=== PATIENT | female | born 1955 | race Caucasian/White ===

== ENCOUNTER 2020-01-27 11:25 | Observation (INO) ==
--- NOTE | 2020-01-27 11:36 | DR.GENAD ---
HPI Time Seen Time Seen by Provider: 01/27/20 11:35 PCP Primary Care Physician: TERESA HPI Comment HPI Comment: PATIENT IS 64YR OLD FEMALE IN ER WITH 3 DAYS HISTORY SWELLING, REDNESS AND PSIN LLE. SHE IS DIABETIC AND REDNESS IS EXTENDING NOW IN THE MID THIGH AREA. NO FEVER. PAIN LLE IS THROBBING, 8/10 AND RADIATING TO THIGH. Complaint/Symptoms Chief Complaint Doctors Comments: SWELLING, REDNESS ANDPAIN LLE TIMES 3 DAYS. Chief Complaint:: PT. C/O CELLULITIS TO LEFT LEG X 3 DAYS. PT. HAS A HISTORY OF CELLULITIS TO LEFT LEG. CELLULITIS EXTENDS UP TO LEFT THIGH. COVID-19 Coronavirus risk:travel/contact w/high risk person: No Has patient experienced Coronavirus symptoms: No Nurses notes reviewed Nurses Notes Review: Yes Source History Provided: Patient Mode of Arrival Mode of Arrival: Wheelchair Timing Onset of Chief Complaint: 01/24/20 Came on: Suddenly Duration Duration: Constant Duration: Days Severity Severity: Moderate Modifying Factors Worsens:: WORSE WHEN WALKING. Improves:: PAIN IMPROVE WITH REST. PMH PMH Past Medical History: Yes Past Medical History: Coronary Artery Disease, Diabetes, Dyslipidemia, GERD and Hypertension Past Medical History Comment: CELLULITIS Past Surgical History: Yes Surgical History: Angioplasty/Stents and Hysterectomy Past Surgical History Comment: SKIN CANCER REMOVALS, HERNIA REPAIR Family History History of Family Medical Conditions: Yes Family Medical History: Diabetes Mellitus, Coronary Artery Disease and Hypertension Social History Does patient currently use any type of tobacco product: No Have you used tobacco products in the last 12 months: No Type of Tobacco Use: None Does any household member use tobacco: No Alcohol Use: None Do you use any recreational Drugs:: No Lives With: Family Lives Where: Home Travel Risk Coronavirus risk:travel/contact w/high risk person: No Has patient experienced Coronavirus symptoms: No Infectious screening In the last 2 months have you had wt loss of >10#?: NO Have you had fever, night sweats or hemotysis?: No Have you traveled outside the country in the last 6 months?: No Isolation: Standard ROS Review of Systems Constitutional: No Symptoms Reported and See HPI; negative Fever, Weakness and Fatigue Eyes: No Symptoms Reported and See HPI; negative Blurred Vision and Diplopia ENTM: No Symptoms Reported and See HPI; negative Ear Pain, Nose Discharge, Nose Congestion and Throat Pain Respiratoy: No Symptoms Reported and See HPI; negative Moist Cough, Short of Breath and Wheezing Cardiovascular: No Symptoms Reported, See HPI, Edema and Palpitations; negative Chest Pain Gastrointestinal/Abdominal: No Symptoms Reported, See HPI and Abdominal Pain; negative Diarrhea and Vomiting Genitourinary: No Symptoms Reported and See HPI; negative Dysuria, Frequency and Hematuria Neurological: No Symptoms Reported and See HPI; negative Headache, Weakness and Dizziness Musculoskeletal: See HPI, Leg (SWELLING AND REDNESS LEFT FOOT.) and Foot (LEFT BIFG TOE INFECTION AND PAIN.) Integumentary: No Symptoms Reported, See HPI, Change in Color (LEFT LEG REDNESS.) and Wound (LEFT BIG TOE WOUND AND REDNESS.) Hematologic/Lymphatic: No Symptoms Reported and See HPI; negative Easy Bruising and Swollen Glands Endocrine: No Symptoms Reported and See HPI; negative Increased Thirst and Increased Urine Psychiatric: No Symptoms Reported and See HPI All Other Systems: Reviewed and Negative PE Vital Signs Vitals: Temperature 97.2 F Pulse Rate 73 Respiratory Rate 17 Blood Pressure [Left Arm] 124/79 Blood Pressure 129/62 O2 Sat by Pulse Oximetry 94 General Limitations: No Limitations General Appearance: Alert and In No Apparent Distress Head Head Exam: Normal Inspection and Atraumatic Eyes Eye exam: Normal Appearance and PERRL; negative Scleral Icterus and Conjunctival Injection ENT ENT Exam: Normal Exam, Normal Oropharynx, Normal External Ear Exam and TM's Normal Bilaterally External Ear Exam: Normal External Inspection; negative Mastoid Tenderness TM/Canal Exam: Bilateral: Normal Nose Exam: Normal Nose Exam; negative Sinus Tenderness Mouth Exam: Normal Inspection; negative Lip Swelling and Tongue Swelling Throat Exam: Normal Inspection; negative Tonsillar Erythema, Tonsillomegaly and Tonsillar Exudate Neck Neck Exam: Normal Inspection and Trachea Midline; negative Tenderness and Lymphadenopathy Chest Chest Inspection: Normal Inspection and Symmetric Chest Wall Rise; negative Tenderness Respiratory Respiratory Exam: Normal Lung Sounds Bilat; negative Accessory Muscle Use, Chest Wall Tenderness and Respiratory Distress Respiratory Exam: Bilateral: Rhonchi and Lower: Rhonchi Cardiovascular Cardiovascular Exam: Regular Rate, Normal Rhythm and Normal Heart Sounds; negative Systolic Murmur and Diastolic Murmur Abdominal Exam Abdominal Exam: Normal Inspection, Normal Bowel Sounds and Soft; negative Tenderness Extremities Extremities Exam: Normal Inspection, Tenderness (TENDERNESS LEFT FOOT AND LEG.), Normal Capillary Refill and Edema Back Back Exam: Normal Inspection and Paraspinal Tenderness (LOWER BACK. CHRONIC.) Neurologic Neurological Exam: Alert and Oriented X3; negative Motor Sensory Deficit Psychiatric Psychiatric Exam: Normal Affect and Normal Mood Skin Skin Exam: Erythema (LEFT LEG AND FOOT.) MDM Additional Information Additional Information Obtained From: Old Records Differential Diagnosis Differential Diagnosis: CELLULITIS LEFT FOOT AND LEFT LEG, DM. COURSE Treatment Treatment: SEE ORDERS. Education/Counseling Education/Counseling: Patient Educated On: Diagnosis ROR Labs Reviewed Laboratory Results Reviewed?: Yes Result Diagrams: 01/29/20 05:35 01/29/20 13:00 Laboratory: 01/27/20 12:10 Blood Blood Culture - Preliminary 01/27/20 11:55 Blood Blood Culture - Preliminary WBC 9.8 X10^3/uL (3.6-10.0) 01/27/20 11:55 RBC 4.47 X10^6/uL (3.5-5.4) 01/27/20 11:55 Hgb 12.8 g/dL (12.0-16.0) 01/27/20 11:55 Hct 39.4 % (36.0-47.0) 01/27/20 11:55 MCV 88.0 fL (80.0-100.0) 01/27/20 11:55 MCH 28.7 pg (27.0-34.0) 01/27/20 11:55 MCHC 32.5 g/dL (33.0-35.0) L 01/27/20 11:55 RDW 16.1 % (11.6-16.5) 01/27/20 11:55 Plt Count 298 X10^3/uL (150.0-450.0) 01/27/20 11:55 MPV 7.7 fL (7.4-11.0) 01/27/20 11:55 Neut % (Auto) 72.9 % (42.0-75.0) 01/27/20 11:55 Lymph % (Auto) 15.8 % (21.0-51.0) L 01/27/20 11:55 [place] % (Auto) 8.5 % (0.0-13.0) 01/27/20 11:55 Eos % (Auto) 2.1 % (0.9-2.9) 01/27/20 11:55 Baso % (Auto) 0.7 % (0.2-1.0) 01/27/20 11:55 Neut # (Auto) 7.1 x10^3/uL (2.2-4.8) H 01/27/20 11:55 Lymph # (Auto) 1.6 X10^3/uL (1.3-2.9) 01/27/20 11:55 [place] # (Auto) 0.8 x10^3/uL (0.3-0.8) 01/27/20 11:55 Eos # (Auto) 0.2 x10^3/uL (0.0-0.2) 01/27/20 11:55 Baso # (Auto) 0.1 X10^3/uL (0.0-0.1) 01/27/20 11:55 Absolute Nucleated RBC 0.0 /100WBC 01/27/20 11:55 Sodium 134 mmol/L (136-145) L 01/27/20 11:55 Corrected Sodium 137 mmol/L (136-145) 01/27/20 11:55 Potassium 4.4 mmol/L (3.5-5.1) 01/27/20 11:55 Chloride 99 mmol/L (98-107) 01/27/20 11:55 Carbon Dioxide 26.6 mmol/L (21-32) 01/27/20 11:55 BUN 14 mg/dL (7-18) 01/27/20 11:55 Creatinine 1.04 mg/dL (0.55-1.02) H 01/27/20 11:55 Est GFR (MDRD) Af Amer > 60 (>60) 01/27/20 11:55 Est GFR (MDRD) Non-Af 57 (>60) L 01/27/20 11:55 Glucose 245 mg/dL (65-99) H 01/27/20 11:55 Calcium 9.4 mg/dL (8.5-10.1) 01/27/20 11:55 Corrected Calcium 10.4 mg/dL (8.5-10.1) H 01/27/20 11:55 Total Bilirubin 0.50 mg/dL (0.2-1.0) 01/27/20 11:55 AST 14 Units/L (15-37) L 01/27/20 11:55 ALT 20 Units/L (12-78) 01/27/20 11:55 Alkaline Phosphatase 71 Units/L (46-116) 01/27/20 11:55 Total Protein 7.9 g/dL (6.4-8.2) 01/27/20 11:55 Albumin 2.8 g/dL (3.4-5.0) L 01/27/20 11:55 Globulin 5.1 g/dL (2.5-4.5) H 01/27/20 11:55 Albumin/Globulin Ratio 0.5 Ratio (1.1-2.1) L 01/27/20 11:55 Other Results Comments: FINDINGS There is diffuse soft tissue swelling of the lower leg, ankle and foot. No fracture or focal bone destruction is seen. Chronic arthritic deformities are noted in the MTP joints and midfoot. Subchondral cystic lucencies are noted at the 1st MTP joint, probably degenerative, less likely of inflammatory origin. Plantar calcaneal enthesophyte is noted at the attachment of aponeurosis. IMPRESSION Osteoarthritis and soft tissue swelling. No localized osseous lesion demonstrated. XRAY XRAY Interpreted by: Radiologist (REPORT NOTED AND DISCUSSED WITH PATIENT.) and Self (ARTHRITIS.) Opioid Opioid Risk Tool Age (Jordon box if 16-45): No History of Preadolescent Sexual Abuse: No Total: 0 Total Score Risk Category: Low Risk Copyright: Grant LE predicting aberrant behaviors Diagnosis Discharge Problem: Cellulitis of left leg Blister of great toe, left, infected Qualifiers: Encounter type: initial encounter Qualified Code(s): S90.422A - Blister (nonthermal), left great toe, initial encounter Diabetes mellitus Qualifiers: Diabetes mellitus type: type 2 Diabetes mellitus superintendent container terminal insulin use: with superintendent container terminal use Diabetes mellitus complication status: with skin complications Diabetes mellitus complication detail: with foot ulcer Qualified Code(s): E11.621 - Type 2 diabetes mellitus with foot ulcer Instructions Forms: Excuse From Work Precautions for COVID19 Patient Portal Social Distancing
[2020-01-27 12:24] LABS: BASOPHILS # (AUTO) 0.1 X10^3/uL (0.0-0.1); BASOPHILS % (AUTO) 0.7 % (0.2-1.0); EOSINOPHILS # (AUTO) 0.2 x10^3/uL (0.0-0.2); EOSINOPHILS % (AUTO) 2.1 % (0.9-2.9); HEMATOCRIT 39.4 % (36.0-47.0); HEMOGLOBIN 12.8 g/dL (12.0-16.0); LYMPHOCYTES # (AUTO) 1.6 X10^3/uL (1.3-2.9); LYMPHOCYTES % (AUTO) 15.8 % (21.0-51.0); MEAN CORPUSCULAR HEMOGLOBIN 28.7 pg (27.0-34.0); MEAN CORPUSCULAR HGB CONC 32.5 g/dL (33.0-35.0); MEAN PLATELET VOLUME 7.7 fL (7.4-11.0); MONOCYTES # (AUTO) 0.8 x10^3/uL (0.3-0.8); MONOCYTES % (AUTO) 8.5 % (0.0-13.0); NEUTROPHILS # (AUTO) 7.1 x10^3/uL (2.2-4.8); NEUTROPHILS % (AUTO) 72.9 % (42.0-75.0); PLATELET COUNT 298 X10^3/uL (150.0-450.0); RED BLOOD COUNT 4.47 X10^6/uL (3.5-5.4); RED CELL DISTRIBUTION WIDTH 16.1 % (11.6-16.5); WHITE BLOOD COUNT 9.8 X10^3/uL (3.6-10.0)
[2020-01-27 12:34] LABS: ALANINE AMINOTRANSFERASE 20 Units/L (12-78); ALBUMIN 2.8 g/dL (3.4-5.0); ALKALINE PHOSPHATASE 71 Units/L (46-116); ASPARTATE AMINO TRANSFERASE 14 Units/L (15-37); BLOOD UREA NITROGEN 14 mg/dL (7-18); CALCIUM 9.4 mg/dL (8.5-10.1); CARBON DIOXIDE 26.6 mmol/L (21-32); CHLORIDE 99 mmol/L (98-107); COR CA(FOR HYPOALB) 10.4 mg/dL (8.5-10.1); COR NA(FOR HYPERGLY) 137 mmol/L (136-145); CREATININE 1.04 mg/dL (0.55-1.02); SODIUM 134 mmol/L (136-145); TOTAL PROTEIN 7.9 g/dL (6.4-8.2); eGFR NON BLACK RACES 57 (>60)
--- NOTE | 2020-01-27 13:47 | RAD ---
HISTORYCellulitisSTUDYLeft foot three viewsCOMPARISONCT left foot 01/21/2019 report onlyFINDINGSThere is diffuse soft tissue swelling of the lower leg, ankle and foot. No fracture or focal bone destruction is seen. Chronic arthritic deformities are noted in the MTP joints and midfoot. Subchondral cystic lucencies are noted at the 1st MTP joint, probably degenerative, less likely of inflammatory origin. Plantar calcaneal enthesophyte is noted at the attachment of aponeurosis.IMPRESSIONOsteoarthritis and soft tissue swelling. No localized osseous lesion demonstrated.Electronically signed by: KYLAH MOLINA (Jan 27, 2020 13:46:14)
[2020-01-27] MEDS ORDERED: PHARMACY CONSULT - VANCOMYCIN XX SCH (14:30)
[2020-01-27] MEDS ORDERED: MOTRIN TAB 600 MG PO PRN (14:30)
[2020-01-27] MEDS: HumuLIN R SC PRN (17:30)
[2020-01-27] MEDS ORDERED: PERCOCET TAB 5/325 MG PO PRN (18:06)
[2020-01-27] MEDS ORDERED: ROCEPHIN VIAL 500 MG IM ONE (18:07)
[2020-01-27] MEDS ORDERED: PERCOCET TAB 5/325 MG ONE (18:18)
[2020-01-27] MEDS ORDERED: XYLOCAINE 1 % (PLAIN) ONE (18:19)
[2020-01-27] MEDS ORDERED: ROCEPHIN VIAL 1 GRAM ONE (18:19)
[2020-01-27] MEDS: NS 1000 ML 1,000 ML IV SCH (18:56)
[2020-01-27] MEDS: LEVAQUIN PREMIX IV 750 MG 750 MG/150 ML BAG IV SCH (18:56)
[2020-01-27] MEDS ORDERED: VANCOMYCIN HCL 1 G in D5W 250 ML IV 250 ML IV SCH (21:00)
[2020-01-27] MEDS: VANCOMYCIN HCL 1 G in NS 250 ML IV 250 ML IV SCH (22:28)
[2020-01-28] MEDS: NS 1000 ML 1,000 ML IV SCH ×4 (03:33→15:15)
[2020-01-28] MEDS: VANCOMYCIN HCL 1 G in NS 250 ML IV 250 ML IV SCH ×3 (05:58→21:37)
[2020-01-28 06:36] LABS: BASOPHILS % (AUTO) 0.6 % (0.2-1.0); EOSINOPHILS # (AUTO) 0.4 x10^3/uL (0.0-0.2); EOSINOPHILS % (AUTO) 5.1 % (0.9-2.9); HEMATOCRIT 35.7 % (36.0-47.0); HEMOGLOBIN 11.6 g/dL (12.0-16.0); LYMPHOCYTES # (AUTO) 2.2 X10^3/uL (1.3-2.9); LYMPHOCYTES % (AUTO) 32.6 % (21.0-51.0); MEAN CORPUSCULAR HEMOGLOBIN 28.3 pg (27.0-34.0); MEAN CORPUSCULAR HGB CONC 32.4 g/dL (33.0-35.0); MEAN CORPUSCULAR VOLUME 87.5 fL (80.0-100.0); MEAN PLATELET VOLUME 7.3 fL (7.4-11.0); MONOCYTES # (AUTO) 0.9 x10^3/uL (0.3-0.8); MONOCYTES % (AUTO) 13.4 % (0.0-13.0); NEUTROPHILS # (AUTO) 3.3 x10^3/uL (2.2-4.8); NEUTROPHILS % (AUTO) 48.3 % (42.0-75.0); PLATELET COUNT 310 X10^3/uL (150.0-450.0); RED BLOOD COUNT 4.08 X10^6/uL (3.5-5.4); RED CELL DISTRIBUTION WIDTH 15.7 % (11.6-16.5); WHITE BLOOD COUNT 6.9 X10^3/uL (3.6-10.0)
[2020-01-28 06:54] LABS: ALANINE AMINOTRANSFERASE 17 Units/L (12-78); ALBUMIN 2.4 g/dL (3.4-5.0); ALKALINE PHOSPHATASE 57 Units/L (46-116); ASPARTATE AMINO TRANSFERASE 17 Units/L (15-37); BLOOD UREA NITROGEN 17 mg/dL (7-18); CARBON DIOXIDE 26.8 mmol/L (21-32); CHLORIDE 102 mmol/L (98-107); COR CA(FOR HYPOALB) 10.3 mg/dL (8.5-10.1); COR NA(FOR HYPERGLY) 139 mmol/L (136-145); CREATININE 1.07 mg/dL (0.55-1.02); SODIUM 137 mmol/L (136-145); TOTAL PROTEIN 6.8 g/dL (6.4-8.2); eGFR NON BLACK RACES 55 (>60)
--- NOTE | 2020-01-28 09:40 | RAD ---
HISTORYPRE OP PAC, CELLULITIS, POOR VENOUS ACCESSSTUDYCHEST, 1 VIEWCOMPARISONPortable chest January 22, 2019FINDINGSThe trachea is midline. The patient has had a lower C-spine anterior fusion. The cardiac silhouette is mildly enlarged. The lungs are clear without focal infiltrate or effusion. The bony thorax is unremarkable.IMPRESSIONNo acute cardiopulmonary disease and no change from the prior chest film January 22, 2019..Electronically signed by: CAROLYN THOMPSON (Jan 28, 2020 09:38:32)
[2020-01-28] MEDS ORDERED: XYLOCAINE 1 % (PLAIN) ONE (10:41)
--- NOTE | 2020-01-28 11:33 | DR.H&P ---
H&P - History & Physical for Day of: H&P Date: 01/27/20 - Chief Complaint Chief Complaint: LEFT LOWER LEG REDNESS AND SWELLING - History of Present Illness History of Present Illness: IS A 64 YEAR OLD PATIENT OF OURS. SHE PRESENTED TO THE ER WITH COMPLAINT OF REDNESS AND SWELLING TO THE LEFT LOWER LEG AND LEFT GREAT TOE FOR THE PAST THREE DAYS. SHE ALSO REPORT PAIN TO LOWER EXTREMITY. PAIN IS RATED 4/10. SHE REPORTS CELLULITIS IN THAT LEG IN THE PAST. OTHER PMH HISTORY INCLUDES CAD, DIABETES, DYSLIPIDEMIA, GERD, HTN, STENTS, HYSTERECTOMY, SKIN CANCER REMOVAL, AND HERNIA REPAIR. ON ARRIVAL TO THE ER, VITALS WERE 97.2-73-17-94%RA-129/62. LABS WERE OBTAINED. ABNORMAL LAB VALUES INCLUDE THE FOLLOWING: SODIUM 134, CREATININE 1.04, GLUCOSE 245, AST 14, ALBUMIN 2.8, GLOBULIN 5.1. BLOOD CULTURES WERE SET UP. A LEFT FOOT XRAY WAS OBTAINED AND REVEALED: There is diffuse soft tissue swelling of the lower leg, ankle and foot. No fracture or focal bone destruction is seen. Chronic arthritic deformities are noted in the MTP joints and midfoot. Subchondral cystic lucencies are noted at the 1st MTP joint, probably degenerative, less likely of inflammatory origin. Plantar calcaneal enthesophyte is noted at the attachment of aponeurosis. SHE WAS GIVEN ROCEPHIN 1.5G IV X 1 DOSE IN THE ER. WE ADMITTED PATIENT FOR FURTHER EVALUATION AND TREATMENT OF CELLULITIS OF THE LEFT LOWER EXTREMITY AND GREAT TOE. SHE WAS STARTED ON NORMAL SALINE AT 50 ML/HR, LEVAQUIN 750MG IV DAILY, VANCOMYCIN 1G IV Q8H, PERCOCET 5/325MG 1 TABLET PO Q4H PRN, LOVENOX 30MG SC BID, HUMULIN R SLIDING SCALE, AND MOTRIN 600MG PO TID PRN. TODAY, WE WILL OBTAIN A VENOUS DOPPLER OF THE LLE TO RULE OUT DVT. OTHERWISE, WE PLAN TO FOLLOW UP WITH AM LABS AND CONTINUE TO MONITOR. - Past Medical History Past Medical History: Coronary Artery Disease, Hypertension, Dyslipidemia, Diabetes, GERD - Past Surgical History Surgical History: Hysterectomy - Family History Family Medical History: Diabetes Mellitus, MS - Social History Does patient currently use any type of tobacco product: No Have you used tobacco products in the last 12 months: No Type of Tobacco Use: None Does any household member use tobacco: No Alcohol Use: None - Medications Home Medications: acyclovir Allergy (Verified 01/27/20 15:32) CONTINUE taking the following medications aspirin [Aspir-81] 80 mg PO DAILY 01/27/20 [History] cyanocobalamin (vitamin B-12) 500 mcg DAILY 01/27/20 [History] isosorbide dinitrate [Isordil] 2.5 mg PO BID 01/27/20 [History] lisinopril 10 mg PO HS 01/27/20 [History] loratadine 10 mg PO DAILY 01/27/20 [History] potassium chloride 10 meq PO DAILY 01/27/20 [History] - Review of Systems Constitutional: No Symptoms Reported Eyes: No Symptoms Reported ENT: No Symptoms Reported Respiratory: No Symptoms Reported Cardiovascular: Edema Gastrointestinal: No Symptoms Reported Genitourinary: No Symptoms Reported Musculoskeletal: Leg Pain (LEFT LEG ) Skin: See HPI (LEFT LEG REDNESS AND SWELLING ) Neurological: No Symptoms Reported - Physical Exam Vital Signs: Temperature 97.9 F Pulse Rate [Brachial] 76 Pulse Rate 73 Respiratory Rate 18 Blood Pressure [Left Arm] 103/50 Blood Pressure 129/62 O2 Sat by Pulse Oximetry 96 Oriented: Normal Eyes: Normal Ear: Normal Nose: Normal Throat: Normal Respiratory: Diminished Throughout Cardiovascular: Edema (LEFT LOWER EXTREMITY 2+ PITTING EDEMA ) : Normal Auscultation: Bowel Sounds: Normal Palpation: Normal Tenderness: Normal Skin: Red, Tender, Hot Musculoskeletal: Left, Leg, Swelling, Tender Psychiatric: Normal Mood Description: Calm Affect: Normal Speech Pattern: Clear - Assessment/Plan (1) Cellulitis of left leg Status: Acute Plan: ADMIT, NORMAL SALINE AT 50 ML/HR, LEVAQUIN 750MG IV DAILY, VANCOMYCIN 1G IV Q8H, PERCOCET 5/325MG 1 TABLET PO Q4H PRN, LOVENOX 30MG SC BID, HUMULIN R SLIDING SCALE, AND MOTRIN 600MG PO TID PRN. (2) CAD (coronary artery disease) Qualifiers: Coronary Disease-Associated Artery/Lesion type: wainwright artery [place] vs. transplanted heart: wainwright heart Associated angina: without angina Qualified Code(s): I25.10 - Atherosclerotic heart disease of wainwright coronary artery without angina pectoris Status: Acute (3) Dyslipidemia Status: Acute (4) GERD (gastroesophageal reflux disease) Qualifiers: Esophagitis presence: without esophagitis Qualified Code(s): K21.9 - Gastro-esophageal reflux disease without esophagitis Status: Acute (5) HTN (hypertension) Qualifiers: Hypertension type: essential hypertension Qualified Code(s): I10 - Essential (primary) hypertension Status: Acute (6) Diabetes mellitus Qualifiers: Diabetes mellitus type: type 2 Diabetes mellitus mcc insulin use: with mcc use Diabetes mellitus complication status: with skin complications Diabetes mellitus complication detail: with foot ulcer Qualified Code(s): E11.621 - Type 2 diabetes mellitus with foot ulcer; L97.509 - Non-pressure chronic ulcer of other part of unspecified foot with unspecified severity; Z79.4 - salvage determiner (current) use of insulin Status: Acute - Allergies Allergies/Adverse Reactions: Allergies Allergy/AdvReac Type Severity Reaction Status Date / Time acyclovir Allergy Verified 01/27/20 15:32
--- NOTE | 2020-01-28 11:34 | RAD ---
HISTORYPICCSTUDYAP [id number]/19/2020FINDINGSThere is a new left-sided PICC which extends to the SVC and terminates near the cavoatrial junction. There is no interval change in appearance of heart or lungs since recent prior.IMPRESSIONPICC position as noted.Electronically signed by: KYLAH MOLINA (Jan 28, 2020 11:32:54)
[2020-01-28 11:42] VITALS: BMI 39.3
--- NOTE | 2020-01-28 11:44 | DR.UPDATE ---
H&P Update History and Physical Update: History and Physical reviewed and patient examined. Changes noted: NO Yes with the following:agree with H&P. Will place PICC for care home abx therapy for cellulitis LLE H&P Reviewed: Yes Patient was examined?: Yes Procedures (ALL) - Central Line Placement PCM.CLCO: written consent Time out performed: Yes Patient placed pm monitor/pulse ox: Yes MD prep: mask, gown, gloves, other Centrial line prep: chlorhexidine scrub Local anesthsia used: lidocane 1% Ultrasound used for placement: Yes (left basilic vein id'd via u/s) Central line lumen ininserted: double (5Fr powerpicc. trimmed length 47cm. 2cm exposed.) Post procedure: good blood return, all ports aspirated, flushed,capped, sterile dressing applied Post procedure xray: tip oc catheter in good position, no pneumothorax seen Patient tolerated procedure: Yes Complications: none
[2020-01-28] MEDS: VSL#3 PO SCH (12:02)
[2020-01-28] MEDS: LEVAQUIN PREMIX IV 750 MG 750 MG/150 ML BAG IV SCH (12:02)
[2020-01-28] MEDS: LOVENOX INJ 30 MG SYR SC SCH ×2 (12:10→21:36)
[2020-01-28] MEDS: HumuLIN R SC PRN ×2 (12:40→17:19)
--- NOTE | 2020-01-28 12:58 | VAS ---
HISTORYLEFT LEG CELLULITIS. Evaluate for possible deep vein thrombosisSTUDYLOWER EXT VENOUS, UNILATERALCOMPARISONNoneFINDINGSUltrasound evaluation of the deep venous system of the left leg was p erformed from the level of the inguinal ligament down to the calf. The deep system is widely patent w ith good flow and compressibility seen along its course. No evidence of intraluminal thrombus is iden tified on the left.IMPRESSIONNo deep vein thrombosis is seen in the left lower extremityElectronicall y signed by: DANIELLE VIRGEN (Jan 28, 2020 12:57:35)
[2020-01-28] MEDS ORDERED: PHARMACY COMMENT IV NR (13:30)
[2020-01-29 06:19] LABS: BASOPHILS % (AUTO) 0.7 % (0.2-1.0); EOSINOPHILS # (AUTO) 0.2 x10^3/uL (0.0-0.2); EOSINOPHILS % (AUTO) 3.5 % (0.9-2.9); HEMATOCRIT 33.7 % (36.0-47.0); HEMOGLOBIN 11.2 g/dL (12.0-16.0); LYMPHOCYTES % (AUTO) 30.1 % (21.0-51.0); MEAN CORPUSCULAR HEMOGLOBIN 28.9 pg (27.0-34.0); MEAN CORPUSCULAR HGB CONC 33.1 g/dL (33.0-35.0); MEAN CORPUSCULAR VOLUME 87.3 fL (80.0-100.0); MEAN PLATELET VOLUME 7.3 fL (7.4-11.0); MONOCYTES # (AUTO) 0.9 x10^3/uL (0.3-0.8); MONOCYTES % (AUTO) 13.2 % (0.0-13.0); NEUTROPHILS # (AUTO) 3.5 x10^3/uL (2.2-4.8); NEUTROPHILS % (AUTO) 52.5 % (42.0-75.0); PLATELET COUNT 305 X10^3/uL (150.0-450.0); RED BLOOD COUNT 3.86 X10^6/uL (3.5-5.4); RED CELL DISTRIBUTION WIDTH 15.6 % (11.6-16.5); WHITE BLOOD COUNT 6.7 X10^3/uL (3.6-10.0)
[2020-01-29] MEDS: NS 1000 ML 1,000 ML IV SCH ×4 (06:22→21:05)
[2020-01-29] MEDS: VANCOMYCIN HCL 1 G in NS 250 ML IV 250 ML IV SCH ×3 (06:22→21:04)
[2020-01-29 06:30] LABS: ALANINE AMINOTRANSFERASE 18 Units/L (12-78); ALBUMIN 2.4 g/dL (3.4-5.0); ALKALINE PHOSPHATASE 62 Units/L (46-116); ASPARTATE AMINO TRANSFERASE 12 Units/L (15-37); BLOOD UREA NITROGEN 11 mg/dL (7-18); CALCIUM 8.6 mg/dL (8.5-10.1); CARBON DIOXIDE 26.7 mmol/L (21-32); CHLORIDE 102 mmol/L (98-107); COR CA(FOR HYPOALB) 9.9 mg/dL (8.5-10.1); COR NA(FOR HYPERGLY) 139 mmol/L (136-145); SODIUM 135 mmol/L (136-145); TOTAL PROTEIN 6.6 g/dL (6.4-8.2); eGFR NON BLACK RACES > 60 (>60)
[2020-01-29] MEDS: HumuLIN R SC PRN ×3 (07:12→21:05)
[2020-01-29] MEDS: LOVENOX INJ 30 MG SYR SC SCH ×2 (09:23→20:46)
[2020-01-29] MEDS: VSL#3 PO SCH (09:23)
[2020-01-29] MEDS: LEVAQUIN PREMIX IV 750 MG 750 MG/150 ML BAG IV SCH (09:23)
--- NOTE | 2020-01-29 11:58 | PCM.PROG ---
Progress Note - Progress Note for Day of Date of Exam: 01/29/20 - Subjective Subjective: IS BEING TREATED FOR LEFT LOWER EXTREMITY CELLULITIS. TODAY, SHE IS ALERT AND ORIENTED, LYING IN BED ON MORNING ROUNDS. SHE CONTINUES WITH REDNESS AND SWELLING TO THE LEFT LOWER EXTREMITY AND LEFT GREAT TOE. SHE ONLY REPORTS MILD PAIN THIS MORNING. ON EXAMINATION, HEART IS REGULAR IN RATE AND RHYTHM. BILATERAL LUNGS ARE NOTED WITH DIMINISHED LUNG SOUNDS THROUGHOUT. ABDOMEN IS ROUND, SOFT, AND NON-TENDER WITH NORMAL BOWEL SOUNDS NOTED IN ALL QUADRANTS. SHE CONTINUES WITH ERYTHEMA AND 1+ PITTING EDEMA TO THE LEFT LOWER EXTREMITY. HER VITALS THIS MORNING ARE: 97.6-70-20-95%-128/60. LABS WERE OBTAINED. ABNORMAL LAB VALUES INCLUDE THE FOLLOWING: HGB 11.2, HCT 33.7, SODIUM 134, GLUCOSE 266, AST 12, CRP 65.20, ALBUMIN 2.4. BLOOD CULTURES ARE PENDING. A VENOUS DOPPLER WAS OBTAINED YESTERDAY AND IS NEGATIVE FOR DVT. SHE IS CURRENTLY RECEIVING: NORMAL SALINE AT 50 ML/HR, LEVAQUIN 750MG IV DAILY, VANCOMYCIN 1G IV Q8H, PERCOCET 5/325MG 1 TABLET PO Q4H PRN, LOVENOX 30MG SC BID, HUMULIN R SLIDING SCALE, AND MOTRIN 600MG PO TID PRN. WE WILL CONTINUE WITH CURRENT PLAN OF CARE TODAY. OTHERWISE, WE PLAN TO FOLLOW UP WITH AM LABS AND CONTINUE TO MONITOR. - Past Medical Family Social History Past Med/Fam/Surg Hx: No changes since H&P Allergies: Allergies acyclovir Allergy (Verified 01/27/20 15:32) - Review of Systems ROS: No change since H&P - Vital Signs and I&O's Vital Signs: Temperature 97.6 F Pulse Rate [Brachial] 70 Pulse Rate 73 Respiratory Rate 20 Blood Pressure [Left Arm] 128/60 Blood Pressure 129/62 O2 Sat by Pulse Oximetry 95 Intake and Output: Intake & Output 01/26/20 01/27/20 01/28/20 01/29/20 11:59 11:59 11:59 11:59 Intake Total 1160 / 1160 2710 / 2710 Output Total 1675 / 1675 1400 / 1400 Balance -515 / -515 1310 / 1310 - Physical Exam Oriented: Normal Eyes: Normal Ear: Normal Nose: Normal Throat: Normal Respiratory: Generalized, Diminished Cardiovascular: Edema (LEFT LOWER EXTREMITY 1+ PITTING EDEMA ) : Normal Auscultation: Bowel Sounds: Normal Palpation: Normal Tenderness: Normal Skin: Red, Tender, Hot Musculoskeletal: Left, Leg, Swelling, Tender Psychiatric: Normal Mood Description: Calm Affect: Normal Speech Pattern: Clear, Appropriate - Laboratory and Diagnostics Result Diagrams: 01/29/20 05:35 01/29/20 05:35 Labs: 01/27/20 12:10 Blood Blood Culture - Preliminary 01/27/20 11:55 Blood Blood Culture - Preliminary Laboratory WBC 6.7 X10^3/uL (3.6-10.0) 01/29/20 05:35 RBC 3.86 X10^6/uL (3.5-5.4) 01/29/20 05:35 Hgb 11.2 g/dL (12.0-16.0) L 01/29/20 05:35 Hct 33.7 % (36.0-47.0) L 01/29/20 05:35 MCV 87.3 fL (80.0-100.0) 01/29/20 05:35 MCH 28.9 pg (27.0-34.0) 01/29/20 05:35 MCHC 33.1 g/dL (33.0-35.0) 01/29/20 05:35 RDW 15.6 % (11.6-16.5) 01/29/20 05:35 Plt Count 305 X10^3/uL (150.0-450.0) 01/29/20 05:35 MPV 7.3 fL (7.4-11.0) L 01/29/20 05:35 Neut % (Auto) 52.5 % (42.0-75.0) 01/29/20 05:35 Lymph % (Auto) 30.1 % (21.0-51.0) 01/29/20 05:35 [place] % (Auto) 13.2 % (0.0-13.0) H 01/29/20 05:35 Eos % (Auto) 3.5 % (0.9-2.9) H 01/29/20 05:35 Baso % (Auto) 0.7 % (0.2-1.0) 01/29/20 05:35 Neut # (Auto) 3.5 x10^3/uL (2.2-4.8) 01/29/20 05:35 Lymph # (Auto) 2.0 X10^3/uL (1.3-2.9) 01/29/20 05:35 [place] # (Auto) 0.9 x10^3/uL (0.3-0.8) H 01/29/20 05:35 Eos # (Auto) 0.2 x10^3/uL (0.0-0.2) 01/29/20 05:35 Baso # (Auto) 0.0 X10^3/uL (0.0-0.1) 01/29/20 05:35 Absolute Nucleated RBC 0.0 /100WBC 01/29/20 05:35 Sodium 135 mmol/L (136-145) L 01/29/20 05:35 Corrected Sodium 139 mmol/L (136-145) 01/29/20 05:35 Potassium 4.0 mmol/L (3.5-5.1) 01/29/20 05:35 Chloride 102 mmol/L (98-107) 01/29/20 05:35 Carbon Dioxide 26.7 mmol/L (21-32) 01/29/20 05:35 BUN 11 mg/dL (7-18) 01/29/20 05:35 Creatinine 0.90 mg/dL (0.55-1.02) 01/29/20 05:35 Est GFR (MDRD) Af Amer > 60 (>60) 01/29/20 05:35 Est GFR (MDRD) Non-Af > 60 (>60) 01/29/20 05:35 Glucose 266 mg/dL (65-99) H 01/29/20 05:35 POC Glucose (mg/dL) 243 mg/dL (65-99) H 01/29/20 11:39 Calcium 8.6 mg/dL (8.5-10.1) 01/29/20 05:35 Corrected Calcium 9.9 mg/dL (8.5-10.1) 01/29/20 05:35 Total Bilirubin 0.40 mg/dL (0.2-1.0) 01/29/20 05:35 AST 12 Units/L (15-37) L 01/29/20 05:35 ALT 18 Units/L (12-78) 01/29/20 05:35 Alkaline Phosphatase 62 Units/L (46-116) 01/29/20 05:35 C-Reactive Protein 65.20 mg/L (0-3.0) H 01/29/20 05:35 Total Protein 6.6 g/dL (6.4-8.2) 01/29/20 05:35 Albumin 2.4 g/dL (3.4-5.0) L 01/29/20 05:35 Globulin 4.2 g/dL (2.5-4.5) 01/29/20 05:35 Albumin/Globulin Ratio 0.6 Ratio (1.1-2.1) L 01/29/20 05:35 - Plan (1) Cellulitis of left leg Status: Acute Plan: NORMAL SALINE AT 50 ML/HR, LEVAQUIN 750MG IV DAILY, VANCOMYCIN 1G IV Q8H, PERCOCET 5/325MG 1 TABLET PO Q4H PRN, LOVENOX 30MG SC BID, HUMULIN R SLIDING SCALE, AND MOTRIN 600MG PO TID PRN. (2) CAD (coronary artery disease) Status: Acute Qualifiers: Coronary Disease-Associated Artery/Lesion type: wainwright artery [place] vs. transplanted heart: wainwright heart Associated angina: without angina Qualified Code(s): I25.10 - Atherosclerotic heart disease of [place] coronary artery without angina pectoris (3) Dyslipidemia Status: Acute (4) GERD (gastroesophageal reflux disease) Status: Acute Qualifiers: Esophagitis presence: without esophagitis Qualified Code(s): K21.9 - Gastro-esophageal reflux disease without esophagitis (5) HTN (hypertension) Status: Acute Qualifiers: Hypertension type: essential hypertension Qualified Code(s): I10 - Essential (primary) hypertension (6) Diabetes mellitus Status: Acute Qualifiers: Diabetes mellitus type: type 2 Diabetes mellitus senior living insulin use: wi th buttermaker helper use Diabetes mellitus complication status: with skin complic ations Diabetes mellitus complication detail: with foot ulcer Qualified Code(s): E11.621 - Type 2 diabetes mellitus with foot ulcer; L97.509 - Non- pressure chronic ulcer of other part of unspecified foot with unspecified severity; Z79.4 - snf (current) use of insulin
[2020-01-29] MEDS ORDERED: MILK OF MAGNESIA PO SCH (12:00)
[2020-01-29 13:21] LABS: CREATININE 0.93 mg/dL (0.55-1.02); VANCOMYCIN,TROUGH 14.9 ug/mL (15-20)
[2020-01-29] MEDS: COLACE CAP 100 MG PO SCH (20:45)
[2020-01-29] MEDS: RESTORIL CAP 15 MG PO PRN (21:04)
[2020-01-30] MEDS: NS 1000 ML 1,000 ML IV SCH ×4 (00:20→22:53)
[2020-01-30 06:15] LABS: BASOPHILS # (AUTO) 0.1 X10^3/uL (0.0-0.1); BASOPHILS % (AUTO) 0.7 % (0.2-1.0); EOSINOPHILS # (AUTO) 0.3 x10^3/uL (0.0-0.2); EOSINOPHILS % (AUTO) 4.3 % (0.9-2.9); HEMATOCRIT 33.7 % (36.0-47.0); HEMOGLOBIN 10.9 g/dL (12.0-16.0); LYMPHOCYTES # (AUTO) 2.5 X10^3/uL (1.3-2.9); LYMPHOCYTES % (AUTO) 35.9 % (21.0-51.0); MEAN CORPUSCULAR HEMOGLOBIN 28.5 pg (27.0-34.0); MEAN CORPUSCULAR HGB CONC 32.5 g/dL (33.0-35.0); MEAN CORPUSCULAR VOLUME 87.7 fL (80.0-100.0); MEAN PLATELET VOLUME 7.1 fL (7.4-11.0); MONOCYTES % (AUTO) 13.9 % (0.0-13.0); NEUTROPHILS # (AUTO) 3.1 x10^3/uL (2.2-4.8); NEUTROPHILS % (AUTO) 45.2 % (42.0-75.0); PLATELET COUNT 315 X10^3/uL (150.0-450.0); RED BLOOD COUNT 3.84 X10^6/uL (3.5-5.4)
[2020-01-30] MEDS: HumuLIN R SC PRN ×4 (06:34→21:23)
[2020-01-30] MEDS: VANCOMYCIN HCL 1 G in NS 250 ML IV 250 ML IV SCH ×3 (06:34→21:53)
[2020-01-30 06:35] LABS: ALANINE AMINOTRANSFERASE 18 Units/L (12-78); ALBUMIN 2.4 g/dL (3.4-5.0); ALKALINE PHOSPHATASE 66 Units/L (46-116); ASPARTATE AMINO TRANSFERASE 14 Units/L (15-37); BLOOD UREA NITROGEN 10 mg/dL (7-18); CALCIUM 8.5 mg/dL (8.5-10.1); CARBON DIOXIDE 27.2 mmol/L (21-32); CHLORIDE 102 mmol/L (98-107); COR CA(FOR HYPOALB) 9.8 mg/dL (8.5-10.1); COR NA(FOR HYPERGLY) 139 mmol/L (136-145); CREATININE 0.78 mg/dL (0.55-1.02); SODIUM 135 mmol/L (136-145); TOTAL PROTEIN 6.6 g/dL (6.4-8.2); eGFR NON BLACK RACES > 60 (>60)
[2020-01-30 06:42] LABS: BAND NEUTROPHILS % 1 % (0-10)
[2020-01-30 06:43] LABS: PLATELET MORPHOLOGY COMMENT NORMAL (NORMAL)
[2020-01-30] MEDS: LOVENOX INJ 30 MG SYR SC SCH ×2 (08:14→21:21)
[2020-01-30] MEDS: LEVAQUIN PREMIX IV 750 MG 750 MG/150 ML BAG IV SCH (08:15)
[2020-01-30] MEDS: VSL#3 PO SCH (08:15)
[2020-01-30] MEDS: NYSTATIN CREAM TOP SCH ×2 (12:56→21:21)
[2020-01-30] MEDS: AMARYL TAB 4 MG PO SCH ×2 (12:56→21:20)
[2020-01-30] MEDS: CLARITIN PO SCH (12:56)
[2020-01-30] MEDS: NORVASC TAB 5 MG PO SCH (12:56)
[2020-01-30] MEDS: LOPRESSOR TAB 25 MG PO SCH ×2 (12:57→21:21)
[2020-01-30] MEDS: GLUCOPHAGE XR 24-HR PO SCH ×2 (12:57→21:20)
[2020-01-30] MEDS: DIOVAN TAB 160 MG PO SCH (12:57)
[2020-01-30] MEDS: MICRO K EXTEN CAP 10 MEQ PO SCH (12:57)
[2020-01-30] MEDS: ASPIRIN EC 81 MG PO SCH (12:57)
[2020-01-30] MEDS: ISOSORBIDE DINITRATE PO SCH ×2 (13:00→21:20)
[2020-01-30] MEDS ORDERED: SNACK - Diabetic Appropriate PO SCH (20:00)
[2020-01-30] MEDS ORDERED: ZESTRIL TAB 10 MG PO SCH (21:00)
[2020-01-30] MEDS ORDERED: LIPITOR TAB 40 MG PO SCH (21:00)
[2020-01-30] MEDS: COLACE CAP 100 MG PO SCH (21:20)
[2020-01-30 21:22] LABS: CREATININE 1.03 mg/dL (0.55-1.02); VANCOMYCIN,TROUGH 15.5 ug/mL (15-20)
[2020-01-30] MEDS: PEPCID TAB 20 MG PO SCH (21:22)
[2020-01-30] MEDS: RESTORIL CAP 15 MG PO PRN (21:23)
[2020-01-30] MEDS: PHARMACY COMMENT IV NR (21:24)
--- NOTE | 2020-01-30 23:21 | PCM.PROG ---
Progress Note - Progress Note for Day of Date of Exam: 01/30/20 - Subjective Subjective: IS BEING TREATED FOR LEFT LOWER EXTREMITY CELLULITIS. TODAY, SHE IS ALERT AND ORIENTED, LYING IN BED ON MORNING ROUNDS. SHE CONTINUES WITH REDNESS AND SWELLING TO THE LEFT LOWER EXTREMITY AND LEFT GREAT TOE. SHE ONLY REPORTS MILD PAIN THIS MORNING. ON EXAMINATION, HEART IS REGULAR IN RATE AND RHYTHM. BILATERAL LUNGS ARE NOTED WITH DIMINISHED LUNG SOUNDS THROUGHOUT. ABDOMEN IS ROUND, SOFT, AND NON-TENDER WITH NORMAL BOWEL SOUNDS NOTED IN ALL QUADRANTS. SHE CONTINUES WITH ERYTHEMA AND 1+ PITTING EDEMA TO THE LEFT LOWER EXTREMITY. HER VITALS THIS MORNING ARE: 98.2-76-20-93%NC-115/56. LABS WERE OBTAINED. ABNORMAL LAB VALUES INCLUDE THE FOLLOWING: HGB 10.9, HCT 33.7, SODIUM 135, GLUCOSE 272, AST 14, CRP 29.30, ALBUMIN 2.4. BLOOD CULTURES ARE PENDING. SHE IS CURRENTLY RECEIVING: NORMAL SALINE AT 50 ML/HR, LEVAQUIN 750MG IV DAILY, VANCOMYCIN 1G IV Q8H, PERCOCET 5/325MG 1 TABLET PO Q4H PRN, LOVENOX 30MG SC BID, HUMULIN R SLIDING SCALE, AND MOTRIN 600MG PO TID PRN. WE WILL CONTINUE WITH CURRENT PLAN OF CARE TODAY. OTHERWISE, WE PLAN TO FOLLOW UP WITH AM LABS AND CONTINUE TO MONITOR. - Past Medical Family Social History Past Med/Fam/Surg Hx: No changes since H&P Allergies: Allergies acyclovir Allergy (Verified 01/27/20 15:32) - Review of Systems ROS: No change since H&P - Vital Signs and I&O's Vital Signs: Temperature 97.8 F Pulse Rate [Brachial] 76 Pulse Rate 73 Respiratory Rate 20 Blood Pressure [Right Arm] 115/56 Blood Pressure [Left Arm] 128/60 Blood Pressure 129/62 O2 Sat by Pulse Oximetry 93 Intake and Output: Intake & Output 01/28/20 01/29/20 01/30/20 01/31/20 11:59 11:59 11:59 11:59 Intake Total 1160 / 1160 2710 / 2710 2250 / 2250 1900 / 1900 Output Total 1675 / 1675 1400 / 1400 Balance -515 / -515 1310 / 1310 2250 / 2250 1900 / 1900 - Physical Exam Oriented: Normal Eyes: Normal Ear: Normal Nose: Normal Throat: Normal Respiratory: Generalized, Diminished Cardiovascular: Edema (LEFT LOWER EXTREMITY 1+ PITTING EDEMA ) : Normal Auscultation: Bowel Sounds: Normal Palpation: Normal Tenderness: Normal Skin: Red, Tender, Hot Musculoskeletal: Left, Leg, Swelling, Tender Psychiatric: Normal Mood Description: Calm Affect: Normal Speech Pattern: Clear, Appropriate - Laboratory and Diagnostics Result Diagrams: 01/30/20 05:16 01/30/20 20:29 Labs: 01/27/20 12:10 Blood Blood Culture - Preliminary 01/27/20 11:55 Blood Blood Culture - Preliminary Laboratory WBC 7.0 X10^3/uL (3.6-10.0) 01/30/20 05:16 RBC 3.84 X10^6/uL (3.5-5.4) 01/30/20 05:16 Hgb 10.9 g/dL (12.0-16.0) L 01/30/20 05:16 Hct 33.7 % (36.0-47.0) L 01/30/20 05:16 MCV 87.7 fL (80.0-100.0) 01/30/20 05:16 MCH 28.5 pg (27.0-34.0) 01/30/20 05:16 MCHC 32.5 g/dL (33.0-35.0) L 01/30/20 05:16 RDW 16.0 % (11.6-16.5) 01/30/20 05:16 Plt Count 315 X10^3/uL (150.0-450.0) 01/30/20 05:16 Plt Count Comment Adequate (ADEQUATE) 01/30/20 05:16 MPV 7.1 fL (7.4-11.0) L 01/30/20 05:16 Neut % (Auto) 45.2 % (42.0-75.0) 01/30/20 05:16 Lymph % (Auto) 35.9 % (21.0-51.0) 01/30/20 05:16 [place] % (Auto) 13.9 % (0.0-13.0) H 01/30/20 05:16 Eos % (Auto) 4.3 % (0.9-2.9) H 01/30/20 05:16 Baso % (Auto) 0.7 % (0.2-1.0) 01/30/20 05:16 Neut # (Auto) 3.1 x10^3/uL (2.2-4.8) 01/30/20 05:16 Lymph # (Auto) 2.5 X10^3/uL (1.3-2.9) 01/30/20 05:16 [place] # (Auto) 1.0 x10^3/uL (0.3-0.8) H 01/30/20 05:16 Eos # (Auto) 0.3 x10^3/uL (0.0-0.2) H 01/30/20 05:16 Baso # (Auto) 0.1 X10^3/uL (0.0-0.1) 01/30/20 05:16 Absolute Nucleated RBC 0.0 /100WBC 01/30/20 05:16 Total Counted 100 01/30/20 05:16 Neutrophils % (Manual) 48 % (39-76) 01/30/20 05:16 Band Neutrophils % 1 % (0-10) 01/30/20 05:16 Lymphocytes % (Manual) 42 % (13-43) 01/30/20 05:16 Monocytes % (Manual) 6 % (4-9) 01/30/20 05:16 Eosinophils % (Manual) 3 % (0-6) 01/30/20 05:16 Plt Morphology Comment Normal (NORMAL) 01/30/20 05:16 RBC Morphology Normal (NORMAL) 01/30/20 05:16 Sodium 135 mmol/L (136-145) L 01/30/20 05:16 Corrected Sodium 139 mmol/L (136-145) 01/30/20 05:16 Potassium 4.4 mmol/L (3.5-5.1) 01/30/20 05:16 Chloride 102 mmol/L (98-107) 01/30/20 05:16 Carbon Dioxide 27.2 mmol/L (21-32) 01/30/20 05:16 BUN 10 mg/dL (7-18) 01/30/20 05:16 Creatinine 1.03 mg/dL (0.55-1.02) H 01/30/20 20:29 Est GFR (MDRD) Af Amer > 60 (>60) 01/30/20 05:16 Est GFR (MDRD) Non-Af > 60 (>60) 01/30/20 05:16 Glucose 272 mg/dL (65-99) H 01/30/20 05:16 POC Glucose (mg/dL) 312 mg/dL (65-99) H 01/30/20 20:11 Calcium 8.5 mg/dL (8.5-10.1) 01/30/20 05:16 Corrected Calcium 9.8 mg/dL (8.5-10.1) 01/30/20 05:16 Total Bilirubin 0.20 mg/dL (0.2-1.0) 01/30/20 05:16 AST 14 Units/L (15-37) L 01/30/20 05:16 ALT 18 Units/L (12-78) 01/30/20 05:16 Alkaline Phosphatase 66 Units/L (46-116) 01/30/20 05:16 C-Reactive Protein 29.30 mg/L (0-3.0) H 01/30/20 05:16 Total Protein 6.6 g/dL (6.4-8.2) 01/30/20 05:16 Albumin 2.4 g/dL (3.4-5.0) L 01/30/20 05:16 Globulin 4.2 g/dL (2.5-4.5) 01/30/20 05:16 Albumin/Globulin Ratio 0.6 Ratio (1.1-2.1) L 01/30/20 05:16 Vancomycin Trough 15.5 ug/mL (15-20) 01/30/20 20:29 - Plan (1) Cellulitis of left leg Status: Acute Plan: NORMAL SALINE AT 50 ML/HR, LEVAQUIN 750MG IV DAILY, VANCOMYCIN 1G IV Q8H, PERCOCET 5/325MG 1 TABLET PO Q4H PRN, LOVENOX 30MG SC BID, HUMULIN R SLIDING SCALE, AND MOTRIN 600MG PO TID PRN. (2) CAD (coronary artery disease) Status: Acute Qualifiers: Coronary Disease-Associated Artery/Lesion type: [place] artery [place] vs. transplanted heart: [place] heart Associated angina: without angina Qualified Code(s): I25.10 - Atherosclerotic heart disease of [place] coronary artery without angina pectoris (3) Dyslipidemia Status: Acute (4) GERD (gastroesophageal reflux disease) Status: Acute Qualifiers: Esophagitis presence: without esophagitis Qualified Code(s): K21.9 - Gastro-esophageal reflux disease without esophagitis (5) HTN (hypertension) Status: Acute Qualifiers: Hypertension type: essential hypertension Qualified Code(s): I10 - Essential (primary) hypertension (6) Diabetes mellitus Status: Acute Qualifiers: Diabetes mellitus type: type 2 Diabetes mellitus custodial insulin use: with custodial use Diabetes mellitus complication status: with skin complications Diabetes mellitus complication detail: with foot ulcer Qualified Code(s): E11.621 - Type 2 diabetes mellitus with foot ulcer; L97.509 - Non-pressure chronic ulcer of other part of unspecified foot with unspecified severity; 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
[2020-01-31 06:03] LABS: BASOPHILS # (AUTO) 0.1 X10^3/uL (0.0-0.1); EOSINOPHILS # (AUTO) 0.4 x10^3/uL (0.0-0.2); EOSINOPHILS % (AUTO) 5.3 % (0.9-2.9); HEMATOCRIT 31.9 % (36.0-47.0); HEMOGLOBIN 10.3 g/dL (12.0-16.0); LYMPHOCYTES # (AUTO) 2.8 X10^3/uL (1.3-2.9); MEAN CORPUSCULAR HEMOGLOBIN 28.6 pg (27.0-34.0); MEAN CORPUSCULAR HGB CONC 32.4 g/dL (33.0-35.0); MEAN CORPUSCULAR VOLUME 88.3 fL (80.0-100.0); MEAN PLATELET VOLUME 7.3 fL (7.4-11.0); MONOCYTES # (AUTO) 0.8 x10^3/uL (0.3-0.8); MONOCYTES % (AUTO) 10.9 % (0.0-13.0); NEUTROPHILS # (AUTO) 3.5 x10^3/uL (2.2-4.8); NEUTROPHILS % (AUTO) 45.8 % (42.0-75.0); PLATELET COUNT 323 X10^3/uL (150.0-450.0); RED BLOOD COUNT 3.62 X10^6/uL (3.5-5.4); RED CELL DISTRIBUTION WIDTH 16.1 % (11.6-16.5); WHITE BLOOD COUNT 7.7 X10^3/uL (3.6-10.0)
[2020-01-31] MEDS: NS 1000 ML 1,000 ML IV SCH (06:05)
[2020-01-31] MEDS: VANCOMYCIN HCL 1 G in NS 250 ML IV 250 ML IV SCH (06:05)
[2020-01-31] MEDS: HumuLIN R SC PRN ×2 (06:06→12:15)
[2020-01-31 06:21] LABS: ALANINE AMINOTRANSFERASE 19 Units/L (12-78); ALBUMIN 2.3 g/dL (3.4-5.0); ALKALINE PHOSPHATASE 48 Units/L (46-116); ASPARTATE AMINO TRANSFERASE 16 Units/L (15-37); BLOOD UREA NITROGEN 8 mg/dL (7-18); CALCIUM 8.5 mg/dL (8.5-10.1); CARBON DIOXIDE 28.2 mmol/L (21-32); CHLORIDE 102 mmol/L (98-107); COR CA(FOR HYPOALB) 9.9 mg/dL (8.5-10.1); COR NA(FOR HYPERGLY) 139 mmol/L (136-145); CREATININE 0.74 mg/dL (0.55-1.02); SODIUM 135 mmol/L (136-145); TOTAL PROTEIN 6.3 g/dL (6.4-8.2); eGFR NON BLACK RACES > 60 (>60)
[2020-01-31 07:21] LABS: PLATELET MORPHOLOGY COMMENT NORMAL (NORMAL)
[2020-01-31] MEDS: LEVAQUIN PREMIX IV 750 MG 750 MG/150 ML BAG IV SCH (10:28)
[2020-01-31] MEDS: ISOSORBIDE DINITRATE PO SCH (10:29)
[2020-01-31] MEDS: PEPCID TAB 20 MG PO SCH (10:29)
[2020-01-31] MEDS: DIOVAN TAB 160 MG PO SCH (10:30)
[2020-01-31] MEDS: AMARYL TAB 4 MG PO SCH (10:30)
[2020-01-31] MEDS: GLUCOPHAGE XR 24-HR PO SCH (10:30)
[2020-01-31] MEDS: CLARITIN PO SCH (10:31)
[2020-01-31] MEDS: NORVASC TAB 5 MG PO SCH (10:31)
[2020-01-31] MEDS: LOVENOX INJ 30 MG SYR SC SCH (10:31)
[2020-01-31] MEDS: NYSTATIN CREAM TOP SCH (10:31)
[2020-01-31] MEDS: LOPRESSOR TAB 25 MG PO SCH (10:31)
[2020-01-31] MEDS: VSL#3 PO SCH (10:32)
[2020-01-31] MEDS: ASPIRIN EC 81 MG PO SCH (10:32)
[2020-01-31] MEDS: MICRO K EXTEN CAP 10 MEQ PO SCH (10:32)
[2020-01-31 12:36] VITALS: BP 145/64
== END 2020-01-31 12:40 | disposition home or self-care (01) ==
LOC: ER 11:28 → OBS 11:28 → MED/SURG 01-28 16:37
PROVIDERS: ADMIT Internal Medicine; ATTEND Internal Medicine
DX: I87.2 Venous insufficiency (chronic) (peripheral); E11.621 Type 2 diabetes mellitus with foot ulcer; Z79.4 Long term (current) use of insulin; E11.65 Type 2 diabetes mellitus with hyperglycemia; R60.0 Localized edema; R94.31 Abnormal electrocardiogram [ECG] [EKG]; I25.10 Atherosclerotic heart disease of native coronary artery without angina pectoris; K21.9 Gastro-esophageal reflux disease without esophagitis; L97.529 Non-pressure chronic ulcer of other part of left foot with unspecified severity; I10 Essential (primary) hypertension; M19.072 Primary osteoarthritis, left ankle and foot; R79.82 Elevated C-reactive protein (CRP); L03.116 Cellulitis of left lower limb; R26.89 Other abnormalities of gait and mobility; E78.2 Mixed hyperlipidemia
CPT/HCPCS: 36415; 71010; 71045; 73630; 80053; 80202; 82565; 85025; 86140; 87040; 93005; 93971; 96360; 96361; 96372; 97162; 99284; A4222; G0378; J0696; J1650; J1815; J1956; J3370; J7030; J7050

== ENCOUNTER 2021-03-09 05:59 | Inpatient (IN) ==
[2021-03-09 06:08] VITALS: BMI 42.6
[2021-03-09] MEDS ORDERED: ZOFRAN INJ 4 MG VIAL IVP ONE (06:28)
[2021-03-09] MEDS ORDERED: TORADOL 30 MG VIAL IVP ONE (06:28)
[2021-03-09] MEDS ORDERED: DILAUDID INJ IVP ONE ×2 (06:28→07:47)
[2021-03-09] MEDS ORDERED: NS 1000 ML 1,000 ML IV ONE ×2 (06:28→07:47)
--- NOTE | 2021-03-09 06:28 | DR.URINEF ---
HPI <Renato Szymanski - Last Filed: 03/13/21 08:14> Time Seen Time Seen by Provider: 03/09/21 06:24 PCP Primary Care Physician: TERESA Complaint Chief Complaint Doctors Comments: 65 y/o female presents with kidney stone. Was seen here early am yesterday. Dx'd with a 5 mm stone of the left ureter. Pt was doing well when she left here. Pain awoke her at 0200. + sharp, severe, constant. Located of left flank. Does not radiate. Associated with nausea, but no vomiting. No fever or chills. Nothning makes the pain better, nothing makes it worse. Chief Complaint:: PT IN ED VIA WHEELCHAIR WITH C/O KIDNEY STONE. PT STATES SHE WAS HERE IN ER YESTERDAY AND WAS DOING FINE TILL NOW. STATES MEDICATION DON'T H ELP. COVID-19 Coronavirus risk:travel/contact w/high risk person: No Has patient experienced Coronavirus symptoms: No Reviewed Nurses Notes Reviewed: Yes Source History Provided: Patient Mode of Arrival Mode of Arrival: Wheelchair Timing Onset of Chief Complaint: 03/08/21 Context Onset: Spontaneous History of: Kidney Stone PMH <Renato Szymanski - Last Filed: 03/13/21 08:14> PMH Past Medical History: Yes Past Medical History: Coronary Artery Disease, Diabetes, Dyslipidemia, GERD and Hypertension Past Surgical History: Yes Surgical History: Hysterectomy Family History History of Family Medical Conditions: Yes Family Medical History: Diabetes Mellitus and [place] Social History Does patient currently use any type of tobacco product: No Have you used tobacco products in the last 12 months: No Type of Tobacco Use: None Does any household member use tobacco: No Alcohol Use: None Do you use any recreational Drugs:: No Lives With: Family Lives Where: Home Travel Risk Coronavirus risk:travel/contact w/high risk person: No Has patient experienced Coronavirus symptoms: No Infectious screening In the last 2 months have you had wt loss of >10#?: NO Have you had fever, night sweats or hemotysis?: No Have you traveled outside the country in the last 6 months?: No Isolation: Standard ROS <Renato Szymanski - Last Filed: 03/13/21 08:14> Review of Systems Constitutional: No Symptoms Reported; negative Chills and Fever Eyes: No Symptoms Reported ENTM: No Symptoms Reported Respiratoy: No Symptoms Reported Cardiovascular: No Symptoms Reported Gastrointestinal/Abdominal: Nausea Genitourinary: No Symptoms Reported; negative Dysuria, Frequency and Hematuria Neurological: No Symptoms Reported Musculoskeletal: Back Pain Integumentary: No Symptoms Reported Hematologic/Lymphatic: No Symptoms Reported Endocrine: No Symptoms Reported Psychiatric: No Symptoms Reported All Other Systems: Reviewed and Negative PE <Renato Grotz - Last Filed: 03/13/21 08:14> Vital Signs Vitals: Temperature 98.0 F Pulse Rate [Left] 99 Pulse Rate 91 Respiratory Rate 16 Blood Pressure [Right Arm] 130/66 Blood Pressure 179/74 O2 Sat by Pulse Oximetry 96 General Limitations: No Limitations General Appearance: Alert and In Distress Eyes Eye exam: Normal Appearance Neck Neck Exam: Normal Inspection and Full ROM Chest Chest Inspection: Normal Inspection Respiratory Respiratory Exam: Normal Lung Sounds Bilat; negative Accessory Muscle Use and Respiratory Distress Respiratory Exam: Bilateral: Clear to Auscultation Cardiovascular Cardiovascular Exam: Regular Rate, Normal Rhythm and Normal Heart Sounds Abdominal Exam Abdominal Exam: Normal Inspection, Normal Bowel Sounds and Soft; negative Tenderness Extremities Extremities Exam: Normal Inspection and Full ROM; negative Edema Back Back Exam: Normal Inspection Neurologic Neurological Exam: Alert, Oriented X3 and CN II-XII Intact; negative Motor Sensory Deficit Psychiatric Psychiatric Exam: Normal Affect Skin Skin Exam: Warm and Dry <Joana Sevilla - Last Filed: 03/09/21 09:21> Vital Signs Vitals: Temperature 98.0 F Pulse Rate [Left] 99 Pulse Rate 91 Respiratory Rate 16 Blood Pressure [Right Arm] 130/66 Blood Pressure 179/74 O2 Sat by Pulse Oximetry 96 [facility] <Renato Grotz - Last Filed: 03/13/21 08:14> Differential Diagnosis Differential Diagnosis: Pyelonephritis, Urolithiasis and UTI COURSE <Renato Grotz - Last Filed: 03/13/21 08:14> Treatment Treatment: Pt seen and diagnosed with left ureteral stone yesterday. Was doing better, until 4 hours ago. Now with severe left flank pain. Given IV fluids, IV analgesia. 0745 - pain down to a 5/10. Will give additional fluids, additional dilaudid. Will repeat the CT to see if the stone is moving. <Joana Sevilla - Last Filed: 03/09/21 09:21> Treatment Treatment: Assumed care of this patient from Dr. Szymanski at shift change. Consultation Consultation Comments: Spoke with Dr. Aguilar (Urology) who will arrange to see patient on outpatient basis. Spoke with Dr. Feldman who accepts patient for admission for ARF. ROR <Renato Szymanski - Last Filed: 03/13/21 08:14> Labs Reviewed Result Diagrams: 03/12/21 06:05 03/12/21 06:05 Laboratory: WBC 10.4 X10^3/uL (3.6-10.0) H 03/09/21 06:46 RBC 4.40 X10^6/uL (3.5-5.4) 03/09/21 06:46 Hgb 12.9 g/dL (12.0-16.0) 03/09/21 06:46 Hct 38.9 % (36.0-47.0) 03/09/21 06:46 MCV 88.3 fL (80.0-100.0) 03/09/21 06:46 MCH 29.3 pg (27.0-34.0) 03/09/21 06:46 MCHC 33.1 g/dL (33.0-35.0) 03/09/21 06:46 RDW 15.9 % (11.6-16.5) 03/09/21 06:46 Plt Count 261 X10^3/uL (150.0-450.0) 03/09/21 06:46 MPV 8.1 fL (7.4-11.0) 03/09/21 06:46 Neut % (Auto) 72.7 % (42.0-75.0) 03/09/21 06:46 Lymph % (Auto) 15.2 % (21.0-51.0) L 03/09/21 06:46 [place] % (Auto) 9.6 % (0.0-13.0) 03/09/21 06:46 Eos % (Auto) 1.7 % (0.9-2.9) 03/09/21 06:46 Baso % (Auto) 0.8 % (0.2-1.0) 03/09/21 06:46 Neut # (Auto) 7.6 x10^3/uL (2.2-4.8) H 03/09/21 06:46 Lymph # (Auto) 1.6 X10^3/uL (1.3-2.9) 03/09/21 06:46 [place] # (Auto) 1.0 x10^3/uL (0.3-0.8) H 03/09/21 06:46 Eos # (Auto) 0.2 x10^3/uL (0.0-0.2) 03/09/21 06:46 Baso # (Auto) 0.1 X10^3/uL (0.0-0.1) 03/09/21 06:46 Absolute Nucleated RBC 0.0 /100WBC 03/09/21 06:46 Sodium 135 mmol/L (136-145) L 03/09/21 06:46 Corrected Sodium 141 mmol/L (136-145) 03/09/21 06:46 Potassium 5.0 mmol/L (3.5-5.1) 03/09/21 06:46 Chloride 99 mmol/L (98-107) 03/09/21 06:46 Carbon Dioxide 26.2 mmol/L (21-32) 03/09/21 06:46 BUN 30 mg/dL (7-18) H 03/09/21 06:46 Creatinine 1.67 mg/dL (0.55-1.02) H 03/09/21 06:46 Est GFR (MDRD) Af Amer 39 (>60) L 03/09/21 06:46 Est GFR (MDRD) Non-Af 33 (>60) L 03/09/21 06:46 Glucose 336 mg/dL (65-99) H 03/09/21 06:46 Calcium 9.0 mg/dL (8.5-10.1) 03/09/21 06:46 Corrected Calcium 9.7 mg/dL (8.5-10.1) 03/09/21 06:46 Total Bilirubin 0.30 mg/dL (0.2-1.0) 03/09/21 06:46 AST 17 Units/L (15-37) 03/09/21 06:46 ALT 27 Units/L (12-78) 03/09/21 06:46 Alkaline Phosphatase 59 Units/L (46-116) 03/09/21 06:46 Total Protein 7.3 g/dL (6.4-8.2) 03/09/21 06:46 Albumin 3.1 g/dL (3.4-5.0) L 03/09/21 06:46 Globulin 4.2 g/dL (2.5-4.5) 03/09/21 06:46 Albumin/Globulin Ratio 0.7 Ratio (1.1-2.1) L 03/09/21 06:46 Specimen Type Clean catch urine 03/09/21 06:47 Urine Color Yellow (YELLOW) 03/09/21 06:47 Urine Appearance Slightly hazy (CLEAR) 03/09/21 06:47 Urine pH 5.0 (5.0 - 8.0) 03/09/21 06:47 Ur Specific [place] 1.020 (1.000-1.030) 03/09/21 06:47 Urine Protein Negative (NEGATIVE) 03/09/21 06:47 Urine Glucose (UA) 4+ (NEGATIVE) 03/09/21 06:47 Urine Ketones 1+ (NEGATIVE) 03/09/21 06:47 Urine Occult Blood 4+ (NEGATIVE) 03/09/21 06:47 Urine Nitrite Negative (NEGATIVE) 03/09/21 06:47 Urine Bilirubin Negative (NEGATIVE) 03/09/21 06:47 Urine Urobilinogen Normal (NORMAL) 03/09/21 06:47 Ur Leukocyte Esterase Negative (NEGATIVE) 03/09/21 06:47 Urine RBC 10-20 /HPF (0-3) A 03/09/21 06:47 Urine WBC 3-5 /HPF (0-5) 03/09/21 06:47 Ur Squamous Epith Cells Few /HPF (NEGATIVE) 03/09/21 06:47 Triple Phos Crystals Moderate /HPF (NEGATIVE) 03/09/21 06:47 Urine Bacteria Trace /HPF (NEGATIVE) 03/09/21 06:47 Ur Culture Indicated? No/not indicated 03/09/21 06:47 SARS-CoV-2 (PCR) Negative (NEGATIVE) 03/09/21 09:22 Influenza Type A (PCR) Negative (NEGATIVE) 03/09/21 09:22 Influenza Type B (PCR) Negative (NEGATIVE) 03/09/21 09:22 RSV (PCR) Negative (NEGATIVE) 03/09/21 09:22 <Joana Sevilla - Last Filed: 03/09/21 09:21> Labs Reviewed Laboratory Results Reviewed?: Yes Laboratory: WBC 10.4 X10^3/uL (3.6-10.0) H 03/09/21 06:46 RBC 4.40 X10^6/uL (3.5-5.4) 03/09/21 06:46 Hgb 12.9 g/dL (12.0-16.0) 03/09/21 06:46 Hct 38.9 % (36.0-47.0) 03/09/21 06:46 MCV 88.3 fL (80.0-100.0) 03/09/21 06:46 MCH 29.3 pg (27.0-34.0) 03/09/21 06:46 MCHC 33.1 g/dL (33.0-35.0) 03/09/21 06:46 RDW 15.9 % (11.6-16.5) 03/09/21 06:46 Plt Count 261 X10^3/uL (150.0-450.0) 03/09/21 06:46 MPV 8.1 fL (7.4-11.0) 03/09/21 06:46 Neut % (Auto) 72.7 % (42.0-75.0) 03/09/21 06:46 Lymph % (Auto) 15.2 % (21.0-51.0) L 03/09/21 06:46 [place] % (Auto) 9.6 % (0.0-13.0) 03/09/21 06:46 Eos % (Auto) 1.7 % (0.9-2.9) 03/09/21 06:46 Baso % (Auto) 0.8 % (0.2-1.0) 03/09/21 06:46 Neut # (Auto) 7.6 x10^3/uL (2.2-4.8) H 03/09/21 06:46 Lymph # (Auto) 1.6 X10^3/uL (1.3-2.9) 03/09/21 06:46 [place] # (Auto) 1.0 x10^3/uL (0.3-0.8) H 03/09/21 06:46 Eos # (Auto) 0.2 x10^3/uL (0.0-0.2) 03/09/21 06:46 Baso # (Auto) 0.1 X10^3/uL (0.0-0.1) 03/09/21 06:46 Absolute Nucleated RBC 0.0 /100WBC 03/09/21 06:46 Sodium 135 mmol/L (136-145) L 03/09/21 06:46 Corrected Sodium 141 mmol/L (136-145) 03/09/21 06:46 Potassium 5.0 mmol/L (3.5-5.1) 03/09/21 06:46 Chloride 99 mmol/L (98-107) 03/09/21 06:46 Carbon Dioxide 26.2 mmol/L (21-32) 03/09/21 06:46 BUN 30 mg/dL (7-18) H 03/09/21 06:46 Creatinine 1.67 mg/dL (0.55-1.02) H 03/09/21 06:46 Est GFR (MDRD) Af Amer 39 (>60) L 03/09/21 06:46 Est GFR (MDRD) Non-Af 33 (>60) L 03/09/21 06:46 Glucose 336 mg/dL (65-99) H 03/09/21 06:46 Calcium 9.0 mg/dL (8.5-10.1) 03/09/21 06:46 Corrected Calcium 9.7 mg/dL (8.5-10.1) 03/09/21 06:46 Total Bilirubin 0.30 mg/dL (0.2-1.0) 03/09/21 06:46 AST 17 Units/L (15-37) 03/09/21 06:46 ALT 27 Units/L (12-78) 03/09/21 06:46 Alkaline Phosphatase 59 Units/L (46-116) 03/09/21 06:46 Total Protein 7.3 g/dL (6.4-8.2) 03/09/21 06:46 Albumin 3.1 g/dL (3.4-5.0) L 03/09/21 06:46 Globulin 4.2 g/dL (2.5-4.5) 03/09/21 06:46 Albumin/Globulin Ratio 0.7 Ratio (1.1-2.1) L 03/09/21 06:46 Specimen Type Clean catch urine 03/09/21 06:47 Urine Color Yellow (YELLOW) 03/09/21 06:47 Urine Appearance Slightly hazy (CLEAR) 03/09/21 06:47 Urine pH 5.0 (5.0 - 8.0) 03/09/21 06:47 Ur Specific [place] 1.020 (1.000-1.030) 03/09/21 06:47 Urine Protein Negative (NEGATIVE) 03/09/21 06:47 Urine Glucose (UA) 4+ (NEGATIVE) 03/09/21 06:47 Urine Ketones 1+ (NEGATIVE) 03/09/21 06:47 Urine Occult Blood 4+ (NEGATIVE) 03/09/21 06:47 Urine Nitrite Negative (NEGATIVE) 03/09/21 06:47 Urine Bilirubin Negative (NEGATIVE) 03/09/21 06:47 Urine Urobilinogen Normal (NORMAL) 03/09/21 06:47 Ur Leukocyte Esterase Negative (NEGATIVE) 03/09/21 06:47 Urine RBC 10-20 /HPF (0-3) A 03/09/21 06:47 Urine WBC 3-5 /HPF (0-5) 03/09/21 06:47 Ur Squamous Epith Cells Few /HPF (NEGATIVE) 03/09/21 06:47 Triple Phos Crystals Moderate /HPF (NEGATIVE) 03/09/21 06:47 Urine Bacteria Trace /HPF (NEGATIVE) 03/09/21 06:47 Ur Culture Indicated? No/not indicated 03/09/21 06:47 SARS-CoV-2 (PCR) Negative (NEGATIVE) 03/09/21 09:22 Influenza Type A (PCR) Negative (NEGATIVE) 03/09/21 09:22 Influenza Type B (PCR) Negative (NEGATIVE) 03/09/21 09:22 RSV (PCR) Negative (NEGATIVE) 03/09/21 09:22 XRAY X-ray Results: HISTORY FOLLOW UP KIDNEY STONES X 1 DAY AGO, CT 03/08/21 STUDY ABDOMEN/PELVIS W/O CON COMPARISON 03/08/2021 CT stone protocol. TECHNIQUE Multiple axial images of the abdomen and pelvis were obtained from the lung bases to the pubic symphysis without the administration of IV contrast. Dose reduction techniques including Automated Exposure Control (AEC) and adjustment of mA and kV were utilized. FINDINGS Lack of contrast limits evaluation.The lung bases are grossly clear. The heart is normal in size. Multiple liver lesions are again identified, some cysts, and some indeterminate. Cholelithiasis without other evidence of cholecystitis. The common duct is normal in size. The spleen, pancreas, and adrenal glands appear benign. Unchanged exophytic 4.3 cm renal cyst on the left. The previously seen 4 mm calcification in the left renal pelvis has migrated distally into the left proximal ureter. The previously seen 5 mm left proximal ureter calculus is in unchanged position. Compare image 42 series 5 on the current study to image 46 series 5 on prior study. Unchanged moderate left hydronephrosis. The urinary bladder appears benign. Status post hysterectomy. Diverticulosis of the colon w ithout evidence of diverticulitis. Negative for bowel obstruction. The appendix appears normal. Mildly atherosclerotic normal caliber abdominal aorta. No pathologic adenopathy. No free air, free fluid or collection. No acute osseous abnormality. IMPRESSION The previously seen 5 mm left proximal ureter calculus is in unchanged position with moderate left hydroureteronephrosis. The previously seen 4 mm left renal pelvis calculus has migrated distally. Other findings are stable. Electronically signed by: Freddy Olivas (Mar 09, 2021 08:23:07) Opioid <Renato Szymanski - Last Filed: 03/13/21 08:14> Opioid Risk Tool Age (Jordon box if 16-45): No History of Preadolescent Sexual Abuse: No Total: 0 Total Score Risk Category: Low Risk Copyright: Grant LE predicting aberrant behaviors <Joana Sevilla - Last Filed: 03/09/21 09:21> Opioid Risk Tool Total: 0 Total Score Risk Category: Low Risk <Renato Szymanski - Last Filed: 03/13/21 08:14> Diagnosis Discharge Problem: Ureterolithiasis Acute renal failure Qualifiers: Acute renal failure type: unspecified Qualified Code(s): N17.9 - Acute kidney failure, unspecified Instructions Forms: Excuse From Work or School Precautions for COVID19 Patient Portal Social Distancing
[2021-03-09] MEDS ORDERED: TORADOL 30 MG VIAL ONE (06:33)
[2021-03-09] MEDS ORDERED: DILAUDID INJ ONE ×2 (06:33→08:06)
[2021-03-09] MEDS ORDERED: NS 1000 ML 1,000 ML ONE ×2 (06:34→07:48)
[2021-03-09] MEDS ORDERED: ZOFRAN INJ 4 MG VIAL ONE (06:34)
[2021-03-09 06:55] LABS: BILIRUBIN,URINE NEGATIVE (NEGATIVE); BLOOD/HEMOGLOBIN,URINE 4+ (NEGATIVE); GLUCOSE, URINE 4+ (NEGATIVE); KETONES,URINE 1+ (NEGATIVE); LEUKOCYTE ESTERASE ,URINE NEGATIVE (NEGATIVE); NITRITES,URINE NEGATIVE (NEGATIVE); PROTEIN,URINE NEGATIVE (NEGATIVE); UROBILINOGEN,URINE NORMAL (NORMAL)
[2021-03-09 06:57] LABS: BASOPHILS # (AUTO) 0.1 X10^3/uL (0.0-0.1); BASOPHILS % (AUTO) 0.8 % (0.2-1.0); EOSINOPHILS # (AUTO) 0.2 x10^3/uL (0.0-0.2); EOSINOPHILS % (AUTO) 1.7 % (0.9-2.9); HEMATOCRIT 38.9 % (36.0-47.0); HEMOGLOBIN 12.9 g/dL (12.0-16.0); LYMPHOCYTES # (AUTO) 1.6 X10^3/uL (1.3-2.9); LYMPHOCYTES % (AUTO) 15.2 % (21.0-51.0); MEAN CORPUSCULAR HEMOGLOBIN 29.3 pg (27.0-34.0); MEAN CORPUSCULAR HGB CONC 33.1 g/dL (33.0-35.0); MEAN CORPUSCULAR VOLUME 88.3 fL (80.0-100.0); MEAN PLATELET VOLUME 8.1 fL (7.4-11.0); MONOCYTES % (AUTO) 9.6 % (0.0-13.0); NEUTROPHILS # (AUTO) 7.6 x10^3/uL (2.2-4.8); NEUTROPHILS % (AUTO) 72.7 % (42.0-75.0); PLATELET COUNT 261 X10^3/uL (150.0-450.0); RED CELL DISTRIBUTION WIDTH 15.9 % (11.6-16.5); WHITE BLOOD COUNT 10.4 X10^3/uL (3.6-10.0)
[2021-03-09 07:00] LABS: APPEARANCE,URINE SLIGHTLY HAZY (CLEAR); COLOR,URINE YELLOW (YELLOW)
[2021-03-09 07:05] LABS: ALBUMIN 3.1 g/dL (3.4-5.0); CARBON DIOXIDE 26.2 mmol/L (21-32); COR CA(FOR HYPOALB) 9.7 mg/dL (8.5-10.1); CREATININE 1.67 mg/dL (0.55-1.02); TOTAL PROTEIN 7.3 g/dL (6.4-8.2)
[2021-03-09 07:09] LABS: BACTERIA,URINE TRACE /HPF (NEGATIVE); SQUAMOUS EPITHELIAL CELL,UR FEW /HPF (NEGATIVE); TRIPLE PHOSPHATE CRYSTAL,UR MODERATE /HPF (NEGATIVE)
--- NOTE | 2021-03-09 08:25 | CT ---
HISTORYFOLLOW UP KIDNEY STONES X 1 DAY AGO, CT 03/08/21UDYABDOMEN/PELVIS W/O [id number]/29/2021 CT stone protocol.TECHNIQUEMultiple axial images of the abdomen and pelvis were obtained from the lung bases to the pubic symphysis without the administration of IV contrast. Dose reduction techniques including Automated Exposure Control (AEC) and adjustment of mA and kV were utilized.FINDINGSLack of contrast limits evaluation.The lung bases are grossly clear. The heart is normal in size. Multiple liver lesions are again identified, some cysts, and some indeterminate. Cholelithiasis without other evidence of cholecystitis. The common duct is normal in size. The spleen, pancreas, and adrenal glands appear benign. Unchanged exophytic 4.3 cm renal cyst on the left. The previously seen 4 mm calcification in the left renal pelvis has migrated distally into the left proximal ureter. The previously seen 5 mm left proximal ureter calculus is in unchanged position. Compare image 42 series 5 on the current study to image 46 series 5 on prior study. Unchanged moderate left hydronephrosis. The urinary bladder appears benign. Status post hysterectomy. Diverticulosis of the colon without evidence of diverticulitis. Negative for bowel obstruction. The appendix appears normal. Mildly atherosclerotic normal caliber abdominal aorta. No pathologic adenopathy. No free air, free fluid or collection. No acute osseous abnormality.IMPRESSIONThe previously seen 5 mm left proximal ureter calculus is in unchanged position with moderate left hydroureteronephrosis. The previously seen 4 mm left renal pelvis calculus has migrated distally.Other findings are stable.Electronically signed by: Freddy Olivas (Mar 09, 2021 08:23:07)
[2021-03-09] MEDS: NS 1000 ML 1,000 ML IV SCH ×2 (11:20→23:01)
[2021-03-09] MEDS: HumuLIN R SUBCUT PRN ×3 (12:30→22:42)
[2021-03-09] MEDS: TORADOL 15 MG VIAL IVP PRN ×2 (17:25→23:01)
[2021-03-09] MEDS ORDERED: SNACK - Diabetic Appropriate PO SCH (20:00)
[2021-03-09] MEDS: SNACK - Diabetic Appropriate PO SCH (20:10)
[2021-03-09] MEDS: LANTUS SC SCH (20:20)
[2021-03-09] MEDS: ZESTRIL TAB 10 MG PO SCH (20:51)
[2021-03-09] MEDS: GLUCOPHAGE XR 24-HR PO SCH (20:51)
[2021-03-09] MEDS: LIPITOR TAB 40 MG PO SCH (20:51)
[2021-03-09] MEDS: AMARYL TAB 4 MG PO SCH (20:51)
[2021-03-09] MEDS: LOPRESSOR TAB 25 MG PO SCH (20:51)
[2021-03-10 07:40] LABS: BASOPHILS % (AUTO) 0.7 % (0.2-1.0); EOSINOPHILS # (AUTO) 0.3 x10^3/uL (0.0-0.2); EOSINOPHILS % (AUTO) 4.3 % (0.9-2.9); HEMATOCRIT 36.2 % (36.0-47.0); HEMOGLOBIN 11.8 g/dL (12.0-16.0); LYMPHOCYTES # (AUTO) 1.9 X10^3/uL (1.3-2.9); LYMPHOCYTES % (AUTO) 27.4 % (21.0-51.0); MEAN CORPUSCULAR HGB CONC 32.7 g/dL (33.0-35.0); MEAN CORPUSCULAR VOLUME 88.8 fL (80.0-100.0); MEAN PLATELET VOLUME 7.6 fL (7.4-11.0); MONOCYTES # (AUTO) 0.9 x10^3/uL (0.3-0.8); MONOCYTES % (AUTO) 12.6 % (0.0-13.0); NEUTROPHILS # (AUTO) 3.9 x10^3/uL (2.2-4.8); PLATELET COUNT 211 X10^3/uL (150.0-450.0); RED BLOOD COUNT 4.08 X10^6/uL (3.5-5.4); RED CELL DISTRIBUTION WIDTH 15.3 % (11.6-16.5); WHITE BLOOD COUNT 7.1 X10^3/uL (3.6-10.0)
[2021-03-10 07:52] LABS: ALBUMIN 2.6 g/dL (3.4-5.0); CALCIUM 8.2 mg/dL (8.5-10.1); CARBON DIOXIDE 26.4 mmol/L (21-32); COR CA(FOR HYPOALB) 9.3 mg/dL (8.5-10.1); CREATININE 1.5 mg/dL (0.55-1.02); TOTAL PROTEIN 6.3 g/dL (6.4-8.2)
[2021-03-10] MEDS ORDERED: AMLODIPINE VALSARTAN PO SCH (09:00)
[2021-03-10] MEDS: LANTUS SC SCH ×2 (09:17→21:40)
[2021-03-10] MEDS: GLUCOPHAGE XR 24-HR PO SCH ×2 (09:18→20:40)
[2021-03-10] MEDS: NORVASC TAB 5 MG PO SCH (09:18)
[2021-03-10] MEDS: AMARYL TAB 4 MG PO SCH ×2 (09:18→20:40)
[2021-03-10] MEDS: DIOVAN TAB 160 MG PO SCH (09:19)
[2021-03-10] MEDS: LOPRESSOR TAB 25 MG PO SCH ×2 (09:19→20:40)
[2021-03-10] MEDS: TORADOL 15 MG VIAL IVP PRN (09:22)
--- NOTE | 2021-03-10 11:56 | PCM.PROG ---
Progress Note Progress Note for Day of Date of Exam: 03/10/21 Subjective Subjective: Patient seen at bedside, no acute events overnight. She is currently admitted for hydration, pain control for renal stones. She states her pain has been well controlled. Denies N/V/D. She is tolerating PO intake. She has been afebrile. Labs: WBC 7.1 Hgb 11.8 BUN/Cr: 26/1.50 Glucose 259 CTAP: 5mm left prox stone unchanged, 4mm left stone migrated distally Plan: continue hydration with IVF, continue pain control. Continue to strain urine. Continue anti-emetics. Continue home medications. Patient will follow up with Dr. Aguilar outpatient. Monitor AM labs and imaging. Past Medical Family Social History Past Med/Fam/Surg Hx: No changes since H&P Allergies: Allergies acyclovir Allergy (Verified 01/27/20 15:32) Vital Signs and I&O's Vital Signs: Temperature 98.1 F Pulse Rate [Left] 80 Pulse Rate 91 Respiratory Rate 18 Blood Pressure [Left Arm] 134/62 Blood Pressure [Right Arm] 150/67 Blood Pressure 179/74 O2 Sat by Pulse Oximetry 95 Intake and Output: Intake & Output 03/07/21 03/08/21 03/09/21 03/10/21 23:59 23:59 23:59 23:59 Intake Total 1034 / 1034 1200 / 1200 Balance 1034 / 1034 1200 / 1200 Physical Exam Oriented: Normal Eyes: Normal Ear: Normal Throat: Normal Respiratory: Normal Cardiovascular: Normal Auscultation: Bowel Sounds: Normal Tenderness: Normal Skin: Normal Musculoskeletal: Normal Psychiatric: Normal Mood Description: Calm Affect: Normal Speech Pattern: Clear and Appropriate Laboratory and Diagnostics Result Diagrams: 03/10/21 07:35 03/10/21 07:35 Labs: Laboratory WBC 7.1 X10^3/uL (3.6-10.0) 03/10/21 07:35 RBC 4.08 X10^6/uL (3.5-5.4) 03/10/21 07:35 Hgb 11.8 g/dL (12.0-16.0) L 03/10/21 07:35 Hct 36.2 % (36.0-47.0) 03/10/21 07:35 MCV 88.8 fL (80.0-100.0) 03/10/21 07:35 MCH 29.0 pg (27.0-34.0) 03/10/21 07:35 MCHC 32.7 g/dL (33.0-35.0) L 03/10/21 07:35 RDW 15.3 % (11.6-16.5) 03/10/21 07:35 Plt Count 211 X10^3/uL (150.0-450.0) 03/10/21 07:35 MPV 7.6 fL (7.4-11.0) 03/10/21 07:35 Neut % (Auto) 55.0 % (42.0-75.0) 03/10/21 07:35 Lymph % (Auto) 27.4 % (21.0-51.0) 03/10/21 07:35 [place] % (Auto) 12.6 % (0.0-13.0) 03/10/21 07:35 Eos % (Auto) 4.3 % (0.9-2.9) H 03/10/21 07:35 Baso % (Auto) 0.7 % (0.2-1.0) 03/10/21 07:35 Neut # (Auto) 3.9 x10^3/uL (2.2-4.8) 03/10/21 07:35 Lymph # (Auto) 1.9 X10^3/uL (1.3-2.9) 03/10/21 07:35 [place] # (Auto) 0.9 x10^3/uL (0.3-0.8) H 03/10/21 07:35 Eos # (Auto) 0.3 x10^3/uL (0.0-0.2) H 03/10/21 07:35 Baso # (Auto) 0.0 X10^3/uL (0.0-0.1) 03/10/21 07:35 Absolute Nucleated RBC 0.0 /100WBC 03/10/21 07:35 Sodium 141 mmol/L (136-145) 03/10/21 07:35 Corrected Sodium 145 mmol/L (136-145) 03/10/21 07:35 Potassium 4.8 mmol/L (3.5-5.1) 03/10/21 07:35 Chloride 107 mmol/L (98-107) 03/10/21 07:35 Carbon Dioxide 26.4 mmol/L (21-32) 03/10/21 07:35 BUN 26 mg/dL (7-18) H 03/10/21 07:35 Creatinine 1.50 mg/dL (0.55-1.02) H 03/10/21 07:35 Est GFR (MDRD) Af Amer 45 (>60) L 03/10/21 07:35 Est GFR (MDRD) Non-Af 37 (>60) L 03/10/21 07:35 Glucose 259 mg/dL (65-99) H 03/10/21 07:35 POC Glucose (mg/dL) 283 mg/dL (65-99) H 03/10/21 11:31 Calcium 8.2 mg/dL (8.5-10.1) L 03/10/21 07:35 Corrected Calcium 9.3 mg/dL (8.5-10.1) 03/10/21 07:35 Total Bilirubin 0.30 mg/dL (0.2-1.0) 03/10/21 07:35 AST 14 Units/L (15-37) L 03/10/21 07:35 ALT 21 Units/L (12-78) 03/10/21 07:35 Alkaline Phosphatase 49 Units/L (46-116) 03/10/21 07:35 Total Protein 6.3 g/dL (6.4-8.2) L 03/10/21 07:35 Albumin 2.6 g/dL (3.4-5.0) L 03/10/21 07:35 Globulin 3.7 g/dL (2.5-4.5) 03/10/21 07:35 Albumin/Globulin Ratio 0.7 Ratio (1.1-2.1) L 03/10/21 07:35 Specimen Type Clean catch urine 03/09/21 06:47 Urine Color Yellow (YELLOW) 03/09/21 06:47 Urine Appearance Slightly hazy (CLEAR) 03/09/21 06:47 Urine pH 5.0 (5.0 - 8.0) 03/09/21 06:47 Ur Specific [place] 1.020 (1.000-1.030) 03/09/21 06:47 Urine Protein Negative (NEGATIVE) 03/09/21 06:47 Urine Glucose (UA) 4+ (NEGATIVE) 03/09/21 06:47 Urine Ketones 1+ (NEGATIVE) 03/09/21 06:47 Urine Occult Blood 4+ (NEGATIVE) 03/09/21 06:47 Urine Nitrite Negative (NEGATIVE) 03/09/21 06:47 Urine Bilirubin Negative (NEGATIVE) 03/09/21 06:47 Urine Urobilinogen Normal (NORMAL) 03/09/21 06:47 Ur Leukocyte Esterase Negative (NEGATIVE) 03/09/21 06:47 Urine RBC 10-20 /HPF (0-3) A 03/09/21 06:47 Urine WBC 3-5 /HPF (0-5) 03/09/21 06:47 Ur Squamous Epith Cells Few /HPF (NEGATIVE) 03/09/21 06:47 Triple Phos Crystals Moderate /HPF (NEGATIVE) 03/09/21 06:47 Urine Bacteria Trace /HPF (NEGATIVE) 03/09/21 06:47 Ur Culture Indicated? No/not indicated 03/09/21 06:47 SARS-CoV-2 (PCR) Negative (NEGATIVE) 03/09/21 09:22 Influenza Type A (PCR) Negative (NEGATIVE) 03/09/21 09:22 Influenza Type B (PCR) Negative (NEGATIVE) 03/09/21 09:22 RSV (PCR) Negative (NEGATIVE) 03/09/21 09:22 Plan (1) Renal stones: Status: Acute (2) JACQUIE (acute kidney injury): Status: Acute (3) Dehydration: Status: Acute
[2021-03-10] MEDS: NS 1000 ML 1,000 ML IV SCH ×2 (12:04→17:46)
[2021-03-10] MEDS: HumuLIN R SUBCUT PRN (16:49)
[2021-03-10] MEDS: SNACK - Diabetic Appropriate PO SCH (20:00)
[2021-03-10] MEDS: LIPITOR TAB 40 MG PO SCH (20:40)
[2021-03-10] MEDS: ZESTRIL TAB 10 MG PO SCH (20:40)
[2021-03-11 05:57] LABS: BASOPHILS # (AUTO) 0.1 X10^3/uL (0.0-0.1); BASOPHILS % (AUTO) 0.8 % (0.2-1.0); EOSINOPHILS # (AUTO) 0.3 x10^3/uL (0.0-0.2); EOSINOPHILS % (AUTO) 4.3 % (0.9-2.9); HEMATOCRIT 35.8 % (36.0-47.0); HEMOGLOBIN 11.8 g/dL (12.0-16.0); LYMPHOCYTES # (AUTO) 2.3 X10^3/uL (1.3-2.9); LYMPHOCYTES % (AUTO) 33.1 % (21.0-51.0); MEAN CORPUSCULAR HEMOGLOBIN 29.1 pg (27.0-34.0); MEAN CORPUSCULAR HGB CONC 32.8 g/dL (33.0-35.0); MEAN CORPUSCULAR VOLUME 88.7 fL (80.0-100.0); MONOCYTES # (AUTO) 0.8 x10^3/uL (0.3-0.8); MONOCYTES % (AUTO) 11.3 % (0.0-13.0); NEUTROPHILS # (AUTO) 3.6 x10^3/uL (2.2-4.8); NEUTROPHILS % (AUTO) 50.5 % (42.0-75.0); PLATELET COUNT 207 X10^3/uL (150.0-450.0); RED BLOOD COUNT 4.04 X10^6/uL (3.5-5.4); RED CELL DISTRIBUTION WIDTH 15.5 % (11.6-16.5); WHITE BLOOD COUNT 7.1 X10^3/uL (3.6-10.0)
[2021-03-11] MEDS: NS 1000 ML 1,000 ML IV SCH ×3 (06:05→19:15)
[2021-03-11 06:06] LABS: CALCIUM 8.2 mg/dL (8.5-10.1); CARBON DIOXIDE 24.6 mmol/L (21-32); CREATININE 1.34 mg/dL (0.55-1.02)
[2021-03-11] MEDS: TORADOL 15 MG VIAL IVP PRN (08:00)
[2021-03-11] MEDS: ZOFRAN INJ 4 MG VIAL IVP PRN (08:00)
[2021-03-11] MEDS: NORVASC TAB 5 MG PO SCH (09:19)
[2021-03-11] MEDS: AMARYL TAB 4 MG PO SCH ×2 (09:20→22:10)
[2021-03-11] MEDS: GLUCOPHAGE XR 24-HR PO SCH ×2 (09:20→21:10)
[2021-03-11] MEDS: DIOVAN TAB 160 MG PO SCH (09:20)
[2021-03-11] MEDS: LOPRESSOR TAB 25 MG PO SCH ×2 (09:21→21:12)
[2021-03-11] MEDS: LANTUS SC SCH ×2 (09:21→21:20)
--- NOTE | 2021-03-11 10:54 | PCM.PROG ---
Progress Note Progress Note for Day of Date of Exam: 03/11/21 Subjective Subjective: Patient seen at bedside, no acute events overnight. She is currently admitted for hydration, pain control for renal stones. No steone passes in urine as per staff. She states her pain has been well controlled. Denies N/V/D. She is tolerating PO intake. She has been afebrile. Labs: WBC 7.1 Hgb 11.8 BUN/Cr: 23/1.34 Glucose 172 CTAP: 5mm left prox stone unchanged, 4mm left stone migrated distally Plan: continue hydration with IVF, continue pain control. Continue to strain urine. Continue anti-emetics. Continue home medications. Patient will follow up with Dr. Aguilar outpatient. CM to set up appointment tomorrow. Monitor AM labs and imaging. Past Medical Family Social History Past Med/Fam/Surg Hx: No changes since H&P Allergies: Allergies acyclovir Allergy (Verified 01/27/20 15:32) Review of Systems ROS: No change since H&P Vital Signs and I&O's Vital Signs: Temperature 97.7 F Pulse Rate [Bilateral Brachial 77 ] Pulse Rate [Left] 80 Pulse Rate 91 Respiratory Rate 16 Blood Pressure [Left Arm] 132/60 Blood Pressure [Right Arm] 150/67 Blood Pressure 179/74 O2 Sat by Pulse Oximetry 94 Intake and Output: Intake & Output 03/08/21 03/09/21 03/10/21 03/11/21 23:59 23:59 23:59 23:59 Intake Total 1034 / 1034 4019 / 4019 1400 / 1400 Balance 1034 / 1034 4019 / 4019 1400 / 1400 Physical Exam Oriented: Normal Eyes: Normal Ear: Normal Nose: Normal Throat: Normal Respiratory: Normal Cardiovascular: Normal Auscultation: Bowel Sounds: Normal Tenderness: Normal Skin: Normal Musculoskeletal: Normal Psychiatric: Normal Mood Description: Calm Affect: Normal Speech Pattern: Clear and Appropriate Laboratory and Diagnostics Result Diagrams: 03/11/21 05:18 03/11/21 05:18 Labs: Laboratory WBC 7.1 X10^3/uL (3.6-10.0) 03/11/21 05:18 RBC 4.04 X10^6/uL (3.5-5.4) 03/11/21 05:18 Hgb 11.8 g/dL (12.0-16.0) L 03/11/21 05:18 Hct 35.8 % (36.0-47.0) L 03/11/21 05:18 MCV 88.7 fL (80.0-100.0) 03/11/21 05:18 MCH 29.1 pg (27.0-34.0) 03/11/21 05:18 MCHC 32.8 g/dL (33.0-35.0) L 03/11/21 05:18 RDW 15.5 % (11.6-16.5) 03/11/21 05:18 Plt Count 207 X10^3/uL (150.0-450.0) 03/11/21 05:18 MPV 8.0 fL (7.4-11.0) 03/11/21 05:18 Neut % (Auto) 50.5 % (42.0-75.0) 03/11/21 05:18 Lymph % (Auto) 33.1 % (21.0-51.0) 03/11/21 05:18 [place] % (Auto) 11.3 % (0.0-13.0) 03/11/21 05:18 Eos % (Auto) 4.3 % (0.9-2.9) H 03/11/21 05:18 Baso % (Auto) 0.8 % (0.2-1.0) 03/11/21 05:18 Neut # (Auto) 3.6 x10^3/uL (2.2-4.8) 03/11/21 05:18 Lymph # (Auto) 2.3 X10^3/uL (1.3-2.9) 03/11/21 05:18 [place] # (Auto) 0.8 x10^3/uL (0.3-0.8) 03/11/21 05:18 Eos # (Auto) 0.3 x10^3/uL (0.0-0.2) H 03/11/21 05:18 Baso # (Auto) 0.1 X10^3/uL (0.0-0.1) 03/11/21 05:18 Absolute Nucleated RBC 0.1 /100WBC 03/11/21 05:18 Sodium 143 mmol/L (136-145) 03/11/21 05:18 Corrected Sodium 145 mmol/L (136-145) 03/11/21 05:18 Potassium 4.5 mmol/L (3.5-5.1) 03/11/21 05:18 Chloride 111 mmol/L (98-107) H 03/11/21 05:18 Carbon Dioxide 24.6 mmol/L (21-32) 03/11/21 05:18 BUN 23 mg/dL (7-18) H 03/11/21 05:18 Creatinine 1.34 mg/dL (0.55-1.02) H 03/11/21 05:18 Est GFR (MDRD) Af Amer 51 (>60) L 03/11/21 05:18 Est GFR (MDRD) Non-Af 42 (>60) L 03/11/21 05:18 Glucose 194 mg/dL (65-99) H 03/11/21 05:18 POC Glucose (mg/dL) 172 mg/dL (65-99) H 03/11/21 05:36 Calcium 8.2 mg/dL (8.5-10.1) L 03/11/21 05:18 Corrected Calcium 9.3 mg/dL (8.5-10.1) 03/10/21 07:35 Total Bilirubin 0.30 mg/dL (0.2-1.0) 03/10/21 07:35 AST 14 Units/L (15-37) L 03/10/21 07:35 ALT 21 Units/L (12-78) 03/10/21 07:35 Alkaline Phosphatase 49 Units/L (46-116) 03/10/21 07:35 Total Protein 6.3 g/dL (6.4-8.2) L 03/10/21 07:35 Albumin 2.6 g/dL (3.4-5.0) L 03/10/21 07:35 Globulin 3.7 g/dL (2.5-4.5) 03/10/21 07:35 Albumin/Globulin Ratio 0.7 Ratio (1.1-2.1) L 03/10/21 07:35 Specimen Type Clean catch urine 03/09/21 06:47 Urine Color Yellow (YELLOW) 03/09/21 06:47 Urine Appearance Slightly hazy (CLEAR) 03/09/21 06:47 Urine pH 5.0 (5.0 - 8.0) 03/09/21 06:47 Ur Specific [place] 1.020 (1.000-1.030) 03/09/21 06:47 Urine Protein Negative (NEGATIVE) 03/09/21 06:47 Urine Glucose (UA) 4+ (NEGATIVE) 03/09/21 06:47 Urine Ketones 1+ (NEGATIVE) 03/09/21 06:47 Urine Occult Blood 4+ (NEGATIVE) 03/09/21 06:47 Urine Nitrite Negative (NEGATIVE) 03/09/21 06:47 Urine Bilirubin Negative (NEGATIVE) 03/09/21 06:47 Urine Urobilinogen Normal (NORMAL) 03/09/21 06:47 Ur Leukocyte Esterase Negative (NEGATIVE) 03/09/21 06:47 Urine RBC 10-20 /HPF (0-3) A 03/09/21 06:47 Urine WBC 3-5 /HPF (0-5) 03/09/21 06:47 Ur Squamous Epith Cells Few /HPF (NEGATIVE) 03/09/21 06:47 Triple Phos Crystals Moderate /HPF (NEGATIVE) 03/09/21 06:47 Urine Bacteria Trace /HPF (NEGATIVE) 03/09/21 06:47 Ur Culture Indicated? No/not indicated 03/09/21 06:47 SARS-CoV-2 (PCR) Negative (NEGATIVE) 03/09/21 09:22 Influenza Type A (PCR) Negative (NEGATIVE) 03/09/21 09:22 Influenza Type B (PCR) Negative (NEGATIVE) 03/09/21 09:22 RSV (PCR) Negative (NEGATIVE) 03/09/21 09:22 Plan (1) Renal stones: Status: Acute (2) JACQUIE (acute kidney injury): Status: Acute (3) Dehydration: Status: Acute
[2021-03-11] MEDS: HumuLIN R SUBCUT PRN ×3 (13:20→21:15)
[2021-03-11] MEDS: SNACK - Diabetic Appropriate PO SCH (20:11)
[2021-03-11] MEDS: ZESTRIL TAB 10 MG PO SCH (21:12)
[2021-03-11] MEDS: LIPITOR TAB 40 MG PO SCH (21:13)
[2021-03-12] MEDS: NS 1000 ML 1,000 ML IV SCH ×3 (04:44→22:55)
[2021-03-12] MEDS: HumuLIN R SUBCUT PRN ×3 (05:46→17:20)
[2021-03-12 07:22] LABS: BASOPHILS # (AUTO) 0.1 X10^3/uL (0.0-0.1); BASOPHILS % (AUTO) 0.7 % (0.2-1.0); EOSINOPHILS # (AUTO) 0.3 x10^3/uL (0.0-0.2); EOSINOPHILS % (AUTO) 4.9 % (0.9-2.9); HEMATOCRIT 35.4 % (36.0-47.0); HEMOGLOBIN 11.7 g/dL (12.0-16.0); LYMPHOCYTES % (AUTO) 27.7 % (21.0-51.0); MEAN CORPUSCULAR HEMOGLOBIN 29.2 pg (27.0-34.0); MEAN CORPUSCULAR HGB CONC 33.1 g/dL (33.0-35.0); MEAN CORPUSCULAR VOLUME 88.4 fL (80.0-100.0); MEAN PLATELET VOLUME 8.1 fL (7.4-11.0); MONOCYTES # (AUTO) 0.8 x10^3/uL (0.3-0.8); MONOCYTES % (AUTO) 11.5 % (0.0-13.0); NEUTROPHILS # (AUTO) 3.9 x10^3/uL (2.2-4.8); NEUTROPHILS % (AUTO) 55.2 % (42.0-75.0); PLATELET COUNT 201 X10^3/uL (150.0-450.0); RED CELL DISTRIBUTION WIDTH 15.9 % (11.6-16.5); WHITE BLOOD COUNT 7.1 X10^3/uL (3.6-10.0)
[2021-03-12 07:43] LABS: CALCIUM 8.1 mg/dL (8.5-10.1); CARBON DIOXIDE 28.2 mmol/L (21-32); CREATININE 1.27 mg/dL (0.55-1.02)
[2021-03-12] MEDS: DIOVAN TAB 160 MG PO SCH (08:31)
[2021-03-12] MEDS: NORVASC TAB 5 MG PO SCH (08:32)
[2021-03-12] MEDS: GLUCOPHAGE XR 24-HR PO SCH ×2 (08:32→21:22)
[2021-03-12] MEDS: AMARYL TAB 4 MG PO SCH ×2 (08:33→21:22)
[2021-03-12] MEDS: LOPRESSOR TAB 25 MG PO SCH ×2 (08:34→21:22)
[2021-03-12] MEDS: LANTUS SC SCH ×2 (08:35→21:22)
[2021-03-12] MEDS: LOVENOX INJ 40 MG SYR SC SCH (10:00)
[2021-03-12] MEDS: TORADOL 15 MG VIAL IVP PRN (11:23)
[2021-03-12] MEDS: ZOFRAN INJ 4 MG VIAL IVP PRN (11:23)
--- NOTE | 2021-03-12 11:39 | CT ---
HISTORYKIDNEY STONE, HYDRONEPHROSIS hypertension. Diabetes mellitus.STUDYABDOMEN/PELVIS W/O CONCOMPARISONCT abdomen and pelvis 03/09/2021TECHNIQUEMultiple CT axial images of the abdomen and pelvis were obtained without IV contrast. Coronal and sagittal images were reconstructed. Dose reduction techniques included Automated Exposure Control (AEC) and adjustment of mA and kV.FINDINGSBoth the 4 mm stone and the 5 mm stone are present in the distal left ureter near the ureterovesical junction. These were previously located more proximally.Moderate left hydroureteronephrosis is present, not significantly changed. Minimal perirenal edema not significantly changed. No other calcifications in the left kidney or upper ureter.No abnormal calcifications in the right kidney or ureter. Urinary bladder is completely contracted.Other findings are stable. Possible calcified gallstones with no inflammation. Numerous hepatic cysts.IMPRESSION1. Both left ureteral stones are located at the left UVJ2. Unchanged moderate left hydroureteronephrosis3. No secondary complicationElectronically signed by: Diego Jane (Mar 12, 2021 11:37:59)
[2021-03-12] MEDS: LIPITOR TAB 40 MG PO SCH (21:22)
[2021-03-12] MEDS: ZESTRIL TAB 10 MG PO SCH (21:22)
[2021-03-12] MEDS: SNACK - Diabetic Appropriate PO SCH (21:23)
[2021-03-13] MEDS: HumuLIN R SUBCUT PRN ×2 (06:07→17:12)
--- NOTE | 2021-03-13 08:40 | PCM.PROG ---
Progress Note - Progress Note for Day of Date of Exam: 03/12/21 - Subjective Subjective: IS BEING TREATED FOR RENAL STONES, HYDROUTERONEPHROSIS, JACQUIE, AND DEHYDRATION. TODAY, SHE IS ALERT AND ORIENTED, SITTING UP IN CHAIR ON MORNING ROUNDS. SHE CONTINUES WITH INTERMITTENT LEFT FLANK PAIN AND NAUSEA AT TIMES. SHE ALSO REPORTS FELLING LIKE IT IS HARDER TO URINATE. ON EXAMINATION, HEART IS REGULAR IN RATE AND RHYTHM. BILATERAL LUNGS ARE NOTED WITH DIMINISHED LUNG SOUNDS THROUGHOUT. ABDOMEN IS ROUND, SOFT, AND NON-TENDER WITH NORMAL BOWEL SOUNDS NOTED IN ALL QUADRANTS. HER VITALS THIS MORNING ARE: 97.6-70-18-95%-127/57. LABS WERE OBTAINED. ABNORMAL LAB VALUES INCLUDE THE FOLLOWING: HGB 11.7, HCT 35.4, SODIUM 146, CHLORIDE 110, BUN 19, CREATININE 1.27, GLUCOSE 169, CALCIUM 8.1. SHE IS CURRENTLY RECEIVING NORMAL SALINE AT 80 ML/HR, NORVASC 5MG PO DAILY, LIPITOR 40MG PO HS, LOVENOX 40MG SC DAILY, AMARYL 4MG PO BID, LANTUS 40 UNITS SC BID, HUMULIN R SLIDING SCALE, TORADOL 15MG IV Q6H PRN, ZESTRIL 10MG PO HS, GLUCOPHAGE 500MG PO BID, LOPRESSOR 25MG PO BID, OTBS ACHS, ZOFRAN 4MG IV Q8H PRN, AND DIOVAN 160MG PO DAILY. WE WILL CONTINUE WITH CURRENT PLAN OF CARE TODAY. WE PLAN TO OBTAIN AN ABDOMEN/PELVIS CT WITHOUT CONTRAST IN THE MORNING. OTHERWISE, WE WILL FOLLOW UP WITH AM LABS AND CONTINUE TO MONITOR. TIME SPENT ON CLINICAL ASSESSMENT, REVIEWING LABS AND IMAGING, DECISION MAKING, AND DOCUMENTATION GREATER THAN 45 MINUTES. - Past Medical Family Social History Past Med/Fam/Surg Hx: No changes since H&P Allergies: Allergies acyclovir Allergy (Verified 01/27/20 15:32) - Review of Systems ROS: No change since H&P - Vital Signs and I&O's Vital Signs: Temperature 97.7 F Pulse Rate [Bilateral Brachial 67 ] Pulse Rate [Left] 70 Pulse Rate 91 Respiratory Rate 20 Blood Pressure [Left Arm] 140/67 Blood Pressure [Right Arm] 150/67 Blood Pressure 179/74 O2 Sat by Pulse Oximetry 93 Intake and Output: Intake & Output 03/10/21 03/11/21 03/12/21 03/13/21 11:59 11:59 11:59 11:59 Intake Total 2233 421 / 4219 3981 / 3981 2797 / 2797 Balance 2233 4219 / 4219 3981 / 3981 6977 / 2797 - Physical Exam Oriented: Normal Eyes: Normal Ear: Normal Nose: Normal Throat: Normal Respiratory: Diminished Cardiovascular: Normal : Normal Auscultation: Bowel Sounds: Normal Palpation: Normal Tenderness: Normal Skin: Normal Musculoskeletal: Normal Psychiatric: Normal Mood Description: Calm Affect: Normal Speech Pattern: Clear, Appropriate - Laboratory and Diagnostics Result Diagrams: 03/12/21 06:05 03/12/21 06:05 Labs: Laboratory WBC 7.1 X10^3/uL (3.6-10.0) 03/12/21 06:05 RBC 4.00 X10^6/uL (3.5-5.4) 03/12/21 06:05 Hgb 11.7 g/dL (12.0-16.0) L 03/12/21 06:05 Hct 35.4 % (36.0-47.0) L 03/12/21 06:05 MCV 88.4 fL (80.0-100.0) 03/12/21 06:05 MCH 29.2 pg (27.0-34.0) 03/12/21 06:05 MCHC 33.1 g/dL (33.0-35.0) 03/12/21 06:05 RDW 15.9 % (11.6-16.5) 03/12/21 06:05 Plt Count 201 X10^3/uL (150.0-450.0) 03/12/21 06:05 MPV 8.1 fL (7.4-11.0) 03/12/21 06:05 Neut % (Auto) 55.2 % (42.0-75.0) 03/12/21 06:05 Lymph % (Auto) 27.7 % (21.0-51.0) 03/12/21 06:05 [place] % (Auto) 11.5 % (0.0-13.0) 03/12/21 06:05 Eos % (Auto) 4.9 % (0.9-2.9) H 03/12/21 06:05 Baso % (Auto) 0.7 % (0.2-1.0) 03/12/21 06:05 Neut # (Auto) 3.9 x10^3/uL (2.2-4.8) 03/12/21 06:05 Lymph # (Auto) 2.0 X10^3/uL (1.3-2.9) 03/12/21 06:05 [place] # (Auto) 0.8 x10^3/uL (0.3-0.8) 03/12/21 06:05 Eos # (Auto) 0.3 x10^3/uL (0.0-0.2) H 03/12/21 06:05 Baso # (Auto) 0.1 X10^3/uL (0.0-0.1) 03/12/21 06:05 Absolute Nucleated RBC 0.1 /100WBC 03/12/21 06:05 Sodium 144 mmol/L (136-145) 03/12/21 06:05 Corrected Sodium 146 mmol/L (136-145) H 03/12/21 06:05 Potassium 4.4 mmol/L (3.5-5.1) 03/12/21 06:05 Chloride 110 mmol/L (98-107) H 03/12/21 06:05 Carbon Dioxide 28.2 mmol/L (21-32) 03/12/21 06:05 BUN 19 mg/dL (7-18) H 03/12/21 06:05 Creatinine 1.27 mg/dL (0.55-1.02) H 03/12/21 06:05 Est GFR (MDRD) Af Amer 54 (>60) L 03/12/21 06:05 Est GFR (MDRD) Non-Af 45 (>60) L 03/12/21 06:05 Glucose 169 mg/dL (65-99) H 03/12/21 06:05 POC Glucose (mg/dL) 226 mg/dL (65-99) H 03/13/21 05:39 Calcium 8.1 mg/dL (8.5-10.1) L 03/12/21 06:05 Corrected Calcium 9.3 mg/dL (8.5-10.1) 03/10/21 07:35 Total Bilirubin 0.30 mg/dL (0.2-1.0) 03/10/21 07:35 AST 14 Units/L (15-37) L 03/10/21 07:35 ALT 21 Units/L (12-78) 03/10/21 07:35 Alkaline Phosphatase 49 Units/L (46-116) 03/10/21 07:35 Total Protein 6.3 g/dL (6.4-8.2) L 03/10/21 07:35 Albumin 2.6 g/dL (3.4-5.0) L 03/10/21 07:35 Globulin 3.7 g/dL (2.5-4.5) 03/10/21 07:35 Albumin/Globulin Ratio 0.7 Ratio (1.1-2.1) L 03/10/21 07:35 Specimen Type Clean catch urine 03/09/21 06:47 Urine Color Yellow (YELLOW) 03/09/21 06:47 Urine Appearance Slightly hazy (CLEAR) 03/09/21 06:47 Urine pH 5.0 (5.0 - 8.0) 03/09/21 06:47 Ur Specific [place] 1.020 (1.000-1.030) 03/09/21 06:47 Urine Protein Negative (NEGATIVE) 03/09/21 06:47 Urine Glucose (UA) 4+ (NEGATIVE) 03/09/21 06:47 Urine Ketones 1+ (NEGATIVE) 03/09/21 06:47 Urine Occult Blood 4+ (NEGATIVE) 03/09/21 06:47 Urine Nitrite Negative (NEGATIVE) 03/09/21 06:47 Urine Bilirubin Negative (NEGATIVE) 03/09/21 06:47 Urine Urobilinogen Normal (NORMAL) 03/09/21 06:47 Ur Leukocyte Esterase Negative (NEGATIVE) 03/09/21 06:47 Urine RBC 10-20 /HPF (0-3) A 03/09/21 06:47 Urine WBC 3-5 /HPF (0-5) 03/09/21 06:47 Ur Squamous Epith Cells Few /HPF (NEGATIVE) 03/09/21 06:47 Triple Phos Crystals Moderate /HPF (NEGATIVE) 03/09/21 06:47 Urine Bacteria Trace /HPF (NEGATIVE) 03/09/21 06:47 Ur Culture Indicated? No/not indicated 03/09/21 06:47 SARS-CoV-2 (PCR) Negative (NEGATIVE) 03/09/21 09:22 Influenza Type A (PCR) Negative (NEGATIVE) 03/09/21 09:22 Influenza Type B (PCR) Negative (NEGATIVE) 03/09/21 09:22 RSV (PCR) Negative (NEGATIVE) 03/09/21 09:22 - Plan (1) Renal stones Status: Acute (2) Hydroureteronephrosis Status: Acute (3) JACQUIE (acute kidney injury) Status: Acute (4) Dehydration Status: Acute
[2021-03-13] MEDS: NORVASC TAB 5 MG PO SCH (08:56)
[2021-03-13] MEDS: GLUCOPHAGE XR 24-HR PO SCH ×2 (08:57→21:18)
[2021-03-13] MEDS: AMARYL TAB 4 MG PO SCH ×2 (08:57→21:19)
[2021-03-13] MEDS: DIOVAN TAB 160 MG PO SCH (08:57)
[2021-03-13] MEDS: LOPRESSOR TAB 25 MG PO SCH ×2 (08:58→21:21)
[2021-03-13] MEDS: LOVENOX INJ 40 MG SYR SC SCH (08:58)
[2021-03-13] MEDS: LANTUS SC SCH ×2 (09:02→21:20)
[2021-03-13 09:44] LABS: BASOPHILS % (AUTO) 0.7 % (0.2-1.0); EOSINOPHILS # (AUTO) 0.3 x10^3/uL (0.0-0.2); EOSINOPHILS % (AUTO) 5.2 % (0.9-2.9); HEMATOCRIT 37.1 % (36.0-47.0); HEMOGLOBIN 12.2 g/dL (12.0-16.0); LYMPHOCYTES # (AUTO) 1.7 X10^3/uL (1.3-2.9); LYMPHOCYTES % (AUTO) 26.3 % (21.0-51.0); MEAN CORPUSCULAR HEMOGLOBIN 29.2 pg (27.0-34.0); MEAN CORPUSCULAR HGB CONC 32.8 g/dL (33.0-35.0); MEAN CORPUSCULAR VOLUME 88.9 fL (80.0-100.0); MEAN PLATELET VOLUME 7.9 fL (7.4-11.0); MONOCYTES # (AUTO) 0.6 x10^3/uL (0.3-0.8); NEUTROPHILS # (AUTO) 3.7 x10^3/uL (2.2-4.8); NEUTROPHILS % (AUTO) 57.8 % (42.0-75.0); PLATELET COUNT 208 X10^3/uL (150.0-450.0); RED BLOOD COUNT 4.17 X10^6/uL (3.5-5.4); RED CELL DISTRIBUTION WIDTH 15.7 % (11.6-16.5); WHITE BLOOD COUNT 6.4 X10^3/uL (3.6-10.0)
[2021-03-13 10:11] LABS: ALBUMIN 2.6 g/dL (3.4-5.0); CALCIUM 8.3 mg/dL (8.5-10.1); CARBON DIOXIDE 27.2 mmol/L (21-32); COR CA(FOR HYPOALB) 9.4 mg/dL (8.5-10.1); CREATININE 1.33 mg/dL (0.55-1.02); TOTAL PROTEIN 6.6 g/dL (6.4-8.2)
[2021-03-13] MEDS: NS 1000 ML 1,000 ML IV SCH ×3 (11:33→22:49)
[2021-03-13] MEDS: FLOMAX PO SCH ×2 (11:33→21:21)
[2021-03-13] MEDS: SNACK - Diabetic Appropriate PO SCH (21:19)
[2021-03-13] MEDS: LIPITOR TAB 40 MG PO SCH (21:19)
[2021-03-13] MEDS: ZESTRIL TAB 10 MG PO SCH (21:19)
[2021-03-13] MEDS: TORADOL 15 MG VIAL IVP PRN (21:24)
[2021-03-13] MEDS: ZOFRAN INJ 4 MG VIAL IVP PRN (22:40)
[2021-03-14] MEDS: HumuLIN R SUBCUT PRN ×3 (06:16→16:26)
[2021-03-14] MEDS: NS 1000 ML 1,000 ML IV SCH ×2 (08:29→20:56)
[2021-03-14] MEDS: FLOMAX PO SCH ×2 (08:30→20:55)
[2021-03-14] MEDS: DIOVAN TAB 160 MG PO SCH (08:30)
[2021-03-14] MEDS: NORVASC TAB 5 MG PO SCH (08:30)
[2021-03-14] MEDS: GLUCOPHAGE XR 24-HR PO SCH ×2 (08:30→20:56)
[2021-03-14] MEDS: LOPRESSOR TAB 25 MG PO SCH ×2 (08:30→20:56)
[2021-03-14] MEDS: AMARYL TAB 4 MG PO SCH ×2 (08:31→20:55)
[2021-03-14] MEDS: LANTUS SC SCH ×2 (08:32→20:57)
[2021-03-14] MEDS: LOVENOX INJ 40 MG SYR SC SCH (08:33)
[2021-03-14] MEDS: TORADOL 15 MG VIAL IVP PRN (08:36)
[2021-03-14] MEDS: ZOFRAN INJ 4 MG VIAL IVP PRN ×3 (08:42→23:29)
[2021-03-14 09:00] LABS: BASOPHILS # (AUTO) 0.1 X10^3/uL (0.0-0.1); BASOPHILS % (AUTO) 1.2 % (0.2-1.0); EOSINOPHILS # (AUTO) 0.4 x10^3/uL (0.0-0.2); EOSINOPHILS % (AUTO) 5.7 % (0.9-2.9); HEMATOCRIT 35.6 % (36.0-47.0); HEMOGLOBIN 11.6 g/dL (12.0-16.0); LYMPHOCYTES # (AUTO) 1.9 X10^3/uL (1.3-2.9); LYMPHOCYTES % (AUTO) 31.1 % (21.0-51.0); MEAN CORPUSCULAR HEMOGLOBIN 28.8 pg (27.0-34.0); MEAN CORPUSCULAR HGB CONC 32.5 g/dL (33.0-35.0); MEAN CORPUSCULAR VOLUME 88.8 fL (80.0-100.0); MEAN PLATELET VOLUME 7.5 fL (7.4-11.0); MONOCYTES # (AUTO) 0.7 x10^3/uL (0.3-0.8); MONOCYTES % (AUTO) 11.5 % (0.0-13.0); NEUTROPHILS # (AUTO) 3.1 x10^3/uL (2.2-4.8); NEUTROPHILS % (AUTO) 50.5 % (42.0-75.0); PLATELET COUNT 200 X10^3/uL (150.0-450.0); RED BLOOD COUNT 4.01 X10^6/uL (3.5-5.4); RED CELL DISTRIBUTION WIDTH 15.6 % (11.6-16.5); WHITE BLOOD COUNT 6.2 X10^3/uL (3.6-10.0)
[2021-03-14 09:10] LABS: ALBUMIN 2.6 g/dL (3.4-5.0); CALCIUM 8.2 mg/dL (8.5-10.1); CARBON DIOXIDE 27.2 mmol/L (21-32); COR CA(FOR HYPOALB) 9.3 mg/dL (8.5-10.1); CREATININE 1.36 mg/dL (0.55-1.02); TOTAL PROTEIN 6.4 g/dL (6.4-8.2)
--- NOTE | 2021-03-14 09:12 | DR.H&P ---
H&P - History & Physical for Day of: H&P Date: 03/09/21 - Chief Complaint Chief Complaint: LEFT SIDE FLANK PAIN, NAUSEA - History of Present Illness History of Present Illness: IS A 65 YEAR OLD PATIENT OF OURS WHO PRESENTED TO THE ER WITH COMPLAINTS OF SEVERE, CONSTANT, AND SHARP LEFT SIDED FLANK PAIN. SHE RATES PAIN A 8/10. PATIENT REPORTS THAT PAIN DOES NOT RADIATE, BUT IS ASSOCIATED WITH NAUSEA. PATIENT REPORTS THAT SHE WAS DIAGNOSED WITH A 4MM AND 5MM KIDNEY STONES ONE DAY PRIOR. PATIENT DENIES FEVER OR CHILLS. HER PMH INCLUDES CAD, DIABETES, DYSLIPIDEMIA, GERD, HTN, AND HYSTERECTOMY. ON ARRIVAL TO THE ER, HER VITALS WERE 98.2-89-18-95%-169/74. LABS WERE OBTAINED. ABNORMAL LAB VALUES INCLUDE THE FOLLOWING: BUN 27, CREATININE 1.21, GLUCOSE 305. A URINALYSIS WAS OBTAINED AND REVEALED: WBC 0-2, RBC 3-5, BACTERIA TRACE, LEUKOCYTES NEGATIVE, OCCULT BLOOD 3+, GLUCOSE 3+. COVID, INFLUENZA, AND RSV NEGATIVE. AN ABDOMEN/PELVIS CT WITHOUT CONTRAST WAS OBTAINED AND REVEALED: 5 mm left proximal ureter calculus with moderate left hydroureteronephrosis. 4 mm left renal pelvis calculus. Cholelithiasis without other evidence of cholecystitis. Multiple liver lesions, some of which are cysts and some of which are indeterminate. Consider MRI liver protocol on a nonemergent basis. IN THE ER, SHE WAS GIVEN DILAUDID 1MG IV X 1, TORADOL 30MG IV X 1, ZOFRAN 4MG IV X 1, AND TWO 1 LITER NORMAL SALINE BOLUSES. SHE WAS THEN ADMITTED FOR FURTHER EVALUATION AND TREATMENT OF RENAL STONES, HYDROUTERONEPHROSIS, JACQUIE, AND DEHYDRATION. SHE WAS STARTED ON NORMAL SALINE AT 80 ML/HR, ZOFRAN 4MG IV Q8H PRN, TORADOL 15MG IV Q6H PRN, LOVENOX 40MG SC DAILY, OTBS ACHS, HUMULIN R SLIDING SCALE, AND HER HOME MEDICATIONS WERE RESUMED. WE WILL CONTINUE WITH CURRENT PLAN OF CARE TODAY. OTHERWISE, WE WILL FOLLOW UP WITH AM LABS AND CONTINUE TO MONITOR. TIME SPENT ON CLINICAL ASSESSMENT, REVIEWING LABS AND IMAGING, DECISION MAKING, AND DOCUMENTATION GREATER THAN 75 MINUTES. - Past Medical History Past Medical History: Coronary Artery Disease, Hypertension, Dyslipidemia, Diabetes, GERD - Past Surgical History Surgical History: Hysterectomy, Other - Family History Family Medical History: Diabetes Mellitus, [place] - Social History Does patient currently use any type of tobacco product: No Have you used tobacco products in the last 12 months: No Type of Tobacco Use: None Does any household member use tobacco: No Alcohol Use: None Drug Use: None - Medications Home Medications: acyclovir Allergy (Verified 01/27/20 15:32) CONTINUE taking the following medications isosorbide dinitrate 5 mg PO BID 03/09/21 [History] nitroglycerin 0.4 mg SUBLINGUAL PRN PRN 03/09/21 [History] - Review of Systems Constitutional: Weakness Eyes: No Symptoms Reported ENT: No Symptoms Reported Respiratory: No Symptoms Reported Cardiovascular: No Symptoms Reported Gastrointestinal: Nausea, Abdominal Pain (LEFT SIDE FLANK) Genitourinary: No Symptoms Reported Musculoskeletal: See HPI (LEFT SIFE FLANK ) Skin: No Symptoms Reported Neurological: Weakness - Physical Exam Vital Signs: Temperature 97.9 F Pulse Rate [Bilateral Brachial 69 ] Pulse Rate [Left] 70 Pulse Rate 91 Respiratory Rate 18 Blood Pressure [Left Arm] 147/67 Blood Pressure [Right Arm] 150/67 Blood Pressure 179/74 O2 Sat by Pulse Oximetry 94 Oriented: Normal Eyes: Normal Ear: Normal Nose: Normal Throat: Normal Respiratory: Diminished Throughout Cardiovascular: Normal : Normal Auscultation: Bowel Sounds: Normal Palpation: Normal Tenderness: Severe (LEFT SIDE FLANK PAIN ) Skin: Normal Musculoskeletal: Left (LEFT SIDE FLANK ) Psychiatric: Normal Mood Description: Calm Affect: Normal Speech Pattern: Clear - Assessment/Plan (1) Renal stones Status: Acute Plan: ADMIT, NORMAL SALINE AT 80 ML/HR, ZOFRAN 4MG IV Q8H PRN, TORADOL 15MG IV Q6H PRN, LOVENOX 40MG SC DAILY, OTBS ACHS, HUMULIN R SLIDING SCALE, AND HER HOME MEDICATIONS WERE RESUMED. (2) Hydroureteronephrosis Status: Acute (3) JACQUIE (acute kidney injury) Status: Acute (4) Dehydration Status: Acute - Allergies Allergies/Adverse Reactions: Allergies Allergy/AdvReac Type Severity Reaction Status Date / Time acyclovir Allergy Verified 01/27/20 15:32
[2021-03-14] MEDS ORDERED: NORVASC TAB 5 MG PO ONE (09:49)
--- NOTE | 2021-03-14 09:57 | PCM.PROG ---
Progress Note - Progress Note for Day of Date of Exam: 03/13/21 - Subjective Subjective: IS BEING TREATED FOR RENAL STONES, HYDROUTERONEPHROSIS, JACQUIE, AND DEHYDRATION. TODAY, SHE IS ALERT AND ORIENTED, SITTING UP IN CHAIR ON MORNING ROUNDS. SHE CONTINUES WITH INTERMITTENT LEFT FLANK PAIN AND NAUSEA AT TIMES. SHE DOES NOT BELIEVE THAT SHE HAS PASSED ANY OF THE STONE AT THIS TIME. ON EXAMINATION, HEART IS REGULAR IN RATE AND RHYTHM. BILATERAL LUNGS ARE NOTED WITH DIMINISHED LUNG SOUNDS THROUGHOUT. ABDOMEN IS ROUND, SOFT, AND NON-TENDER WITH NORMAL BOWEL SOUNDS NOTED IN ALL QUADRANTS. HER VITALS THIS MORNING ARE: 98.6-73-18-94%-153/66. LABS WERE OBTAINED. ABNORMAL LAB VALUES INCLUDE THE FOLLOWING: CORRECTED SODIUM 147, CHLORIDE 108, CREATININE 1.33, GLUCOSE 305, CALCIUM 8.3, ALBUMIN 2.6. WE REPEATED AN ABDOMEN/PELVIS CT WITHOUT CONTRAST YESTERDAY. IT REVEALED: 1. Both left ureteral stones are located at the left UVJ 2. Unchanged moderate left hydroureteronephrosis 3. No secondary complication. SHE IS CURRENTLY RECEIVING NORMAL SALINE AT 80 ML/HR, NORVASC 5MG PO DAILY, LIPITOR 40MG PO HS, LOVENOX 40MG SC DAILY, AMARYL 4MG PO BID, LANTUS 40 UNITS SC BID, HUMULIN R SLIDING SCALE, TORADOL 15MG IV Q6H PRN, ZESTRIL 10MG PO HS, GLUCOPHAGE 500MG PO BID, LOPRESSOR 25MG PO BID, OTBS ACHS, ZOFRAN 4MG IV Q8H PRN, AND DIOVAN 160MG PO DAILY. WE WILL CONTINUE WITH CURRENT PLAN OF CARE TODAY AND ADD FLOMAX 0.4MG PO BID. OTHERWISE, WE WILL FOLLOW UP WITH AM LABS AND [facility] TO MONITOR. TIME SPENT ON CLINICAL ASSESSMENT, REVIEWING LABS AND IMAGING, DECISION MAKING, AND DOCUMENTATION GREATER THAN 45 MINUTES. - Past Medical Family Social History Past Med/Fam/Surg Hx: No changes since H&P Allergies: Allergies acyclovir Allergy (Verified 01/27/20 15:32) - Review of Systems ROS: No change since H&P - Vital Signs and I&O's Vital Signs: Temperature 97.9 F Pulse Rate [Bilateral Brachial 69 ] Pulse Rate [Left] 70 Pulse Rate 91 Respiratory Rate 18 Blood Pressure [Left Arm] 147/67 Blood Pressure [Right Arm] 150/67 Blood Pressure 179/74 O2 Sat by Pulse Oximetry 94 Intake and Output: Intake & Output 03/11/21 03/12/21 03/13/21 03/14/21 11:59 11:59 11:59 11:59 Intake Total 4219 / 4219 3981 / 3981 2797 / 2797 3173 / 3173 Balance 4219 / 4219 3981 / 3981 2797 / 2797 3173 / 3173 - Physical Exam Oriented: Normal Eyes: Normal Ear: Normal Nose: Normal Throat: Normal Respiratory: Diminished Cardiovascular: Normal : Normal Auscultation: Bowel Sounds: Normal Palpation: Normal Tenderness: Severe (LEFT SIDE FLANK PAIN ) Skin: Normal Musculoskeletal: Left (LEFT SIDE FLANK ) Psychiatric: Normal Mood Description: Calm Affect: Normal Speech Pattern: Clear - Laboratory and Diagnostics Result Diagrams: 03/14/21 08:45 03/14/21 08:45 Labs: Laboratory WBC 6.2 X10^3/uL (3.6-10.0) 03/14/21 08:45 RBC 4.01 X10^6/uL (3.5-5.4) 03/14/21 08:45 Hgb 11.6 g/dL (12.0-16.0) L 03/14/21 08:45 Hct 35.6 % (36.0-47.0) L 03/14/21 08:45 MCV 88.8 fL (80.0-100.0) 03/14/21 08:45 MCH 28.8 pg (27.0-34.0) 03/14/21 08:45 MCHC 32.5 g/dL (33.0-35.0) L 03/14/21 08:45 RDW 15.6 % (11.6-16.5) 03/14/21 08:45 Plt Count 200 X10^3/uL (150.0-450.0) 03/14/21 08:45 MPV 7.5 fL (7.4-11.0) 03/14/21 08:45 Neut % (Auto) 50.5 % (42.0-75.0) 03/14/21 08:45 Lymph % (Auto) 31.1 % (21.0-51.0) 03/14/21 08:45 [place] % (Auto) 11.5 % (0.0-13.0) 03/14/21 08:45 Eos % (Auto) 5.7 % (0.9-2.9) H 03/14/21 08:45 Baso % (Auto) 1.2 % (0.2-1.0) H 03/14/21 08:45 Neut # (Auto) 3.1 x10^3/uL (2.2-4.8) 03/14/21 08:45 Lymph # (Auto) 1.9 X10^3/uL (1.3-2.9) 03/14/21 08:45 [place] # (Auto) 0.7 x10^3/uL (0.3-0.8) 03/14/21 08:45 Eos # (Auto) 0.4 x10^3/uL (0.0-0.2) H 03/14/21 08:45 Baso # (Auto) 0.1 X10^3/uL (0.0-0.1) 03/14/21 08:45 Absolute Nucleated RBC 0.2 /100WBC 03/14/21 08:45 Sodium 143 mmol/L (136-145) 03/14/21 08:45 Corrected Sodium 148 mmol/L (136-145) H 03/14/21 08:45 Potassium 4.4 mmol/L (3.5-5.1) 03/14/21 08:45 Chloride 108 mmol/L (98-107) H 03/14/21 08:45 Carbon Dioxide 27.2 mmol/L (21-32) 03/14/21 08:45 BUN 15 mg/dL (7-18) 03/14/21 08:45 Creatinine 1.36 mg/dL (0.55-1.02) H 03/14/21 08:45 Est GFR (MDRD) Af Amer 50 (>60) L 03/14/21 08:45 Est GFR (MDRD) Non-Af 41 (>60) L 03/14/21 08:45 Glucose 310 mg/dL (65-99) H 03/14/21 08:45 POC Glucose (mg/dL) 267 mg/dL (65-99) H 03/14/21 05:26 Calcium 8.2 mg/dL (8.5-10.1) L 03/14/21 08:45 Corrected Calcium 9.3 mg/dL (8.5-10.1) 03/14/21 08:45 Total Bilirubin 0.20 mg/dL (0.2-1.0) 03/14/21 08:45 AST 13 Units/L (15-37) L 03/14/21 08:45 ALT 23 Units/L (12-78) 03/14/21 08:45 Alkaline Phosphatase 57 Units/L (46-116) 03/14/21 08:45 Total Protein 6.4 g/dL (6.4-8.2) 03/14/21 08:45 Albumin 2.6 g/dL (3.4-5.0) L 03/14/21 08:45 Globulin 3.8 g/dL (2.5-4.5) 03/14/21 08:45 Albumin/Globulin Ratio 0.7 Ratio (1.1-2.1) L 03/14/21 08:45 Specimen Type Clean catch urine 03/09/21 06:47 Urine Color Yellow (YELLOW) 03/09/21 06:47 Urine Appearance Slightly hazy (CLEAR) 03/09/21 06:47 Urine pH 5.0 (5.0 - 8.0) 03/09/21 06:47 Ur Specific [place] 1.020 (1.000-1.030) 03/09/21 06:47 Urine Protein Negative (NEGATIVE) 03/09/21 06:47 Urine Glucose (UA) 4+ (NEGATIVE) 03/09/21 06:47 Urine Ketones 1+ (NEGATIVE) 03/09/21 06:47 Urine Occult Blood 4+ (NEGATIVE) 03/09/21 06:47 Urine Nitrite Negative (NEGATIVE) 03/09/21 06:47 Urine Bilirubin Negative (NEGATIVE) 03/09/21 06:47 Urine Urobilinogen Normal (NORMAL) 03/09/21 06:47 Ur Leukocyte Esterase Negative (NEGATIVE) 03/09/21 06:47 Urine RBC 10-20 /HPF (0-3) A 03/09/21 06:47 Urine WBC 3-5 /HPF (0-5) 03/09/21 06:47 Ur Squamous Epith Cells Few /HPF (NEGATIVE) 03/09/21 06:47 Triple Phos Crystals Moderate /HPF (NEGATIVE) 03/09/21 06:47 Urine Bacteria Trace /HPF (NEGATIVE) 03/09/21 06:47 Ur Culture Indicated? No/not indicated 03/09/21 06:47 SARS-CoV-2 (PCR) Negative (NEGATIVE) 03/09/21 09:22 Influenza Type A (PCR) Negative (NEGATIVE) 03/09/21 09:22 Influenza Type B (PCR) Negative (NEGATIVE) 03/09/21 09:22 RSV (PCR) Negative (NEGATIVE) 03/09/21 09:22 - Plan (1) Renal stones Status: Acute Plan: NORMAL SALINE AT 80 ML/HR, ZOFRAN 4MG IV Q8H PRN, TORADOL 15MG IV Q6H PRN, LOVENOX 40MG SC DAILY, OTBS ACHS, HUMULIN R SLIDING SCALE, FLOMAX 0.4MG PO BID, AND HER HOME MEDICATIONS WERE RESUMED. (2) Hydroureteronephrosis Status: Acute (3) JACQUIE (acute kidney injury) Status: Acute (4) Dehydration Status: Acute
--- NOTE | 2021-03-14 10:02 | PCM.PROG ---
Progress Note - Progress Note for Day of Date of Exam: 03/14/21 - Subjective Subjective: IS BEING TREATED FOR RENAL STONES, HYDROUTERONEPHROSIS, AJCQUIE, AND DEHYDRATION. TODAY, SHE IS ALERT AND ORIENTED, SITTING UP IN CHAIR ON MORNING ROUNDS. SHE CONTINUES WITH INTERMITTENT LEFT FLANK PAIN AND NAUSEA AT TIMES. SHE DOES NOT BELIEVE THAT SHE HAS PASSED ANY OF THE STONE AT THIS TIME. SHE ALSO REPORTS REDNESS TO THE LEFT LOWER EXTREMITY. PATIENT REPORTS THAT SHE OFTEN DEVELOPS CELLULITIS TO HER LOWER EXTREMITIES. ON EXAMINATION, HEART IS REGULAR IN RATE AND RHYTHM. BILATERAL LUNGS ARE NOTED WITH DIMINISHED LUNG SOUNDS THROUGHOUT. ABDOMEN IS ROUND, SOFT, AND NON-TENDER WITH NORMAL BOWEL SOUNDS NOTED IN ALL QUADRANTS. HER VITALS THIS MORNING ARE: 97.9-69-18-94%-147/67. LABS WERE OBTAINED. ABNORMAL LAB VALUES INCLUDE THE FOLLOWING: HGB 11.6, HCT 35.6, SODIUM 148, CHLORIDE 108, CREATININE 1.36, GLUCOSE 310, CALCIUM 8.2, AST 13, ALBUMIN 2.6. SHE IS CURRENTLY RECEIVING NORMAL SALINE AT 80 ML/HR, FLOMAX 0.4MG PO BID, NORVASC 5MG PO DAILY, LIPITOR 40MG PO HS, LOVENOX 40MG SC DAILY, AMARYL 4MG PO BID, LANTUS 40 UNITS SC BID, HUMULIN R SLIDING SCALE, TORADOL 15MG IV Q6H PRN, ZESTRIL 10MG PO HS, GLUCOPHAGE 500MG PO BID, LOPRESSOR 25MG PO BID, OTBS ACHS, ZOFRAN 4MG IV Q8H PRN, AND DIOVAN 160MG PO DAILY. TODAY, WE WILL INCREASE NORVASC TO 10MG PO DAILY, CHANGE TORADOL TO 30MG IV Q8H DEVANTE, AND ADD ZOSYN 3.375G IV TID FOR CELLULITIS. OTHERWISE, WE WILL FOLLOW UP WITH AM LABS AND CONTINUE TO MONITOR. TIME SPENT ON CLINICAL ASSESSMENT, REVIEWING LABS AND IMAGING, DECISION MAKING, AND DOCUMENTATION GREATER THAN 45 MINUTES. - Past Medical Family Social History Past Med/Fam/Surg Hx: No changes since H&P Allergies: Allergies acyclovir Allergy (Verified 01/27/20 15:32) - Review of Systems ROS: No change since H&P - Vital Signs and I&O's Vital Signs: Temperature 97.9 F Pulse Rate [Bilateral Brachial 69 ] Pulse Rate [Left] 70 Pulse Rate 91 Respiratory Rate 18 Blood Pressure [Left Arm] 147/67 Blood Pressure [Right Arm] 150/67 Blood Pressure 179/74 O2 Sat by Pulse Oximetry 94 Intake and Output: Intake & Output 03/11/21 03/12/21 03/13/21 03/14/21 11:59 11:59 11:59 11:59 Intake Total 4219 / 4219 3981 / 3981 2797 / 2797 3173 / 3173 Balance 4219 / 4219 3981 / 3981 2797 / 2797 3173 / 3173 - Physical Exam Oriented: Normal Eyes: Normal Ear: Normal Nose: Normal Throat: Normal Respiratory: Diminished Cardiovascular: Normal : Normal Auscultation: Bowel Sounds: Normal Palpation: Normal Tenderness: Mild (LEFT FLANK) Skin: Red (LEFT LOWER EXTREMITY ), Hot Musculoskeletal: Left (LEFT SIDE FLANK ) Psychiatric: Normal Mood Description: Calm Affect: Normal Speech Pattern: Clear - Laboratory and Diagnostics Result Diagrams: 03/14/21 08:45 03/14/21 08:45 Labs: Laboratory WBC 6.2 X10^3/uL (3.6-10.0) 03/14/21 08:45 RBC 4.01 X10^6/uL (3.5-5.4) 03/14/21 08:45 Hgb 11.6 g/dL (12.0-16.0) L 03/14/21 08:45 Hct 35.6 % (36.0-47.0) L 03/14/21 08:45 MCV 88.8 fL (80.0-100.0) 03/14/21 08:45 MCH 28.8 pg (27.0-34.0) 03/14/21 08:45 MCHC 32.5 g/dL (33.0-35.0) L 03/14/21 08:45 RDW 15.6 % (11.6-16.5) 03/14/21 08:45 Plt Count 200 X10^3/uL (150.0-450.0) 03/14/21 08:45 MPV 7.5 fL (7.4-11.0) 03/14/21 08:45 Neut % (Auto) 50.5 % (42.0-75.0) 03/14/21 08:45 Lymph % (Auto) 31.1 % (21.0-51.0) 03/14/21 08:45 [place] % (Auto) 11.5 % (0.0-13.0) 03/14/21 08:45 Eos % (Auto) 5.7 % (0.9-2.9) H 03/14/21 08:45 Baso % (Auto) 1.2 % (0.2-1.0) H 03/14/21 08:45 Neut # (Auto) 3.1 x10^3/uL (2.2-4.8) 03/14/21 08:45 Lymph # (Auto) 1.9 X10^3/uL (1.3-2.9) 03/14/21 08:45 [place] # (Auto) 0.7 x10^3/uL (0.3-0.8) 03/14/21 08:45 Eos # (Auto) 0.4 x10^3/uL (0.0-0.2) H 03/14/21 08:45 Baso # (Auto) 0.1 X10^3/uL (0.0-0.1) 03/14/21 08:45 Absolute Nucleated RBC 0.2 /100WBC 03/14/21 08:45 Sodium 143 mmol/L (136-145) 03/14/21 08:45 Corrected Sodium 148 mmol/L (136-145) H 03/14/21 08:45 Potassium 4.4 mmol/L (3.5-5.1) 03/14/21 08:45 Chloride 108 mmol/L (98-107) H 03/14/21 08:45 Carbon Dioxide 27.2 mmol/L (21-32) 03/14/21 08:45 BUN 15 mg/dL (7-18) 03/14/21 08:45 Creatinine 1.36 mg/dL (0.55-1.02) H 03/14/21 08:45 Est GFR (MDRD) Af Amer 50 (>60) L 03/14/21 08:45 Est GFR (MDRD) Non-Af 41 (>60) L 03/14/21 08:45 Glucose 310 mg/dL (65-99) H 03/14/21 08:45 POC Glucose (mg/dL) 267 mg/dL (65-99) H 03/14/21 05:26 Calcium 8.2 mg/dL (8.5-10.1) L 03/14/21 08:45 Corrected Calcium 9.3 mg/dL (8.5-10.1) 03/14/21 08:45 Total Bilirubin 0.20 mg/dL (0.2-1.0) 03/14/21 08:45 AST 13 Units/L (15-37) L 03/14/21 08:45 ALT 23 Units/L (12-78) 03/14/21 08:45 Alkaline Phosphatase 57 Units/L (46-116) 03/14/21 08:45 Total Protein 6.4 g/dL (6.4-8.2) 03/14/21 08:45 Albumin 2.6 g/dL (3.4-5.0) L 03/14/21 08:45 Globulin 3.8 g/dL (2.5-4.5) 03/14/21 08:45 Albumin/Globulin Ratio 0.7 Ratio (1.1-2.1) L 03/14/21 08:45 Specimen Type Clean catch urine 03/09/21 06:47 Urine Color Yellow (YELLOW) 03/09/21 06:47 Urine Appearance Slightly hazy (CLEAR) 03/09/21 06:47 Urine pH 5.0 (5.0 - 8.0) 03/09/21 06:47 Ur Specific [place] 1.020 (1.000-1.030) 03/09/21 06:47 Urine Protein Negative (NEGATIVE) 03/09/21 06:47 Urine Glucose (UA) 4+ (NEGATIVE) 03/09/21 06:47 Urine Ketones 1+ (NEGATIVE) 03/09/21 06:47 Urine Occult Blood 4+ (NEGATIVE) 03/09/21 06:47 Urine Nitrite Negative (NEGATIVE) 03/09/21 06:47 Urine Bilirubin Negative (NEGATIVE) 03/09/21 06:47 Urine Urobilinogen Normal (NORMAL) 03/09/21 06:47 Ur Leukocyte Esterase Negative (NEGATIVE) 03/09/21 06:47 Urine RBC 10-20 /HPF (0-3) A 03/09/21 06:47 Urine WBC 3-5 /HPF (0-5) 03/09/21 06:47 Ur Squamous Epith Cells Few /HPF (NEGATIVE) 03/09/21 06:47 Triple Phos Crystals Moderate /HPF (NEGATIVE) 03/09/21 06:47 Urine Bacteria Trace /HPF (NEGATIVE) 03/09/21 06:47 Ur Culture Indicated? No/not indicated 03/09/21 06:47 SARS-CoV-2 (PCR) Negative (NEGATIVE) 03/09/21 09:22 Influenza Type A (PCR) Negative (NEGATIVE) 03/09/21 09:22 Influenza Type B (PCR) Negative (NEGATIVE) 03/09/21 09:22 RSV (PCR) Negative (NEGATIVE) 03/09/21 09:22 - Plan (1) Renal stones Status: Acute Plan: NORMAL SALINE AT 80 ML/HR, ZOFRAN 4MG IV Q8H PRN, TORADOL 30MG IV Q8H, LOVENOX 40MG SC DAILY, OTBS ACHS, HUMULIN R SLIDING SCALE, FLOMAX 0.4MG PO BID, ZOSYN 3.375G IV TID, AND HER HOME MEDICATIONS WERE RESUMED. (2) Hydroureteronephrosis Status: Acute (3) JACQUIE (acute kidney injury) Status: Acute (4) Dehydration Status: Acute
[2021-03-14] MEDS: ZOSYN VIAL 3.375 GRAMS 3.375 G in NS 100 ML IV + SPIKE MINIBAG* 100 ML IV SCH ×3 (10:13→21:00)
[2021-03-14] MEDS: TORADOL 30 MG VIAL IVP SCH ×2 (13:49→23:00)
[2021-03-14] MEDS: SNACK - Diabetic Appropriate PO SCH (20:55)
[2021-03-14] MEDS: ZESTRIL TAB 10 MG PO SCH (20:57)
[2021-03-14] MEDS: LIPITOR TAB 40 MG PO SCH (21:00)
[2021-03-15] MEDS: ZOSYN VIAL 3.375 GRAMS 3.375 G in NS 100 ML IV + SPIKE MINIBAG* 100 ML IV SCH ×3 (05:04→21:53)
[2021-03-15] MEDS: TORADOL 30 MG VIAL IVP SCH ×3 (06:12→21:54)
[2021-03-15] MEDS: ZOFRAN INJ 4 MG VIAL IVP PRN ×3 (06:30→21:54)
[2021-03-15] MEDS: GLUCOPHAGE XR 24-HR PO SCH ×2 (08:21→20:38)
[2021-03-15] MEDS: NORVASC TAB 5 MG PO SCH (08:24)
[2021-03-15] MEDS: FLOMAX PO SCH ×2 (08:24→20:37)
[2021-03-15] MEDS: DIOVAN TAB 160 MG PO SCH (08:24)
[2021-03-15] MEDS: AMARYL TAB 4 MG PO SCH ×2 (08:24→20:38)
[2021-03-15] MEDS: LOVENOX INJ 40 MG SYR SC SCH (08:25)
[2021-03-15] MEDS: LANTUS SC SCH ×2 (08:25→20:38)
[2021-03-15] MEDS: LOPRESSOR TAB 25 MG PO SCH ×2 (08:26→20:38)
[2021-03-15] MEDS: NS 1000 ML 1,000 ML IV SCH ×2 (08:39→21:54)
[2021-03-15 09:14] LABS: BASOPHILS % (AUTO) 0.8 % (0.2-1.0); EOSINOPHILS # (AUTO) 0.3 x10^3/uL (0.0-0.2); EOSINOPHILS % (AUTO) 5.7 % (0.9-2.9); HEMATOCRIT 33.9 % (36.0-47.0); HEMOGLOBIN 11.1 g/dL (12.0-16.0); LYMPHOCYTES # (AUTO) 1.5 X10^3/uL (1.3-2.9); LYMPHOCYTES % (AUTO) 25.3 % (21.0-51.0); MEAN CORPUSCULAR HGB CONC 32.8 g/dL (33.0-35.0); MEAN CORPUSCULAR VOLUME 88.6 fL (80.0-100.0); MEAN PLATELET VOLUME 7.7 fL (7.4-11.0); MONOCYTES # (AUTO) 0.6 x10^3/uL (0.3-0.8); MONOCYTES % (AUTO) 9.5 % (0.0-13.0); NEUTROPHILS # (AUTO) 3.6 x10^3/uL (2.2-4.8); NEUTROPHILS % (AUTO) 58.7 % (42.0-75.0); PLATELET COUNT 194 X10^3/uL (150.0-450.0); RED BLOOD COUNT 3.83 X10^6/uL (3.5-5.4); RED CELL DISTRIBUTION WIDTH 15.8 % (11.6-16.5); WHITE BLOOD COUNT 6.1 X10^3/uL (3.6-10.0)
[2021-03-15 09:42] LABS: ALBUMIN 2.4 g/dL (3.4-5.0); CALCIUM 8.2 mg/dL (8.5-10.1); CARBON DIOXIDE 27.6 mmol/L (21-32); COR CA(FOR HYPOALB) 9.5 mg/dL (8.5-10.1); CREATININE 1.38 mg/dL (0.55-1.02); TOTAL PROTEIN 5.9 g/dL (6.4-8.2)
[2021-03-15] MEDS ORDERED: LASIX IVP ONE (09:44)
[2021-03-15] MEDS: HumuLIN R SUBCUT PRN ×2 (11:57→17:04)
--- NOTE | 2021-03-15 12:10 | CT ---
HISTORYRENAL STONES, HYDROSTUDYCT ABDOMEN AND PELVIS WITHOUT IV CONTRASTCOMPARISONAugust [id number] CT was acquired from the lung bases through the pelvis WITHOUT IV contrast; multiplaner reformats are generated from the original axial data.FINDINGSThere is residual moderate left-sided hydroureteronephrosis related to incomplete passage of 2 obstructing stones stacked within the distal left ureter at the UVJ measuring 5 and 4 mm respectively.The remainder the examination is unchanged. Other chronic findings include multiple hepatic hypoattenuating lesions, many of which demonstrate coarse peripheral mural based calcifications, cholelithiasis, and exophytic left-sided renal cyst. There is no evidence of acute cholecystitis. No free air or free fluid is identified. No distended bowel segments are observed. The uterus is surgically absent. Evaluation of the osseous structures demonstrates no aggressive bony lesions or acute osseous abnormalities.IMPRESSIONUnchanged moderate left-sided hydroureteronephrosis secondary to 2, obstructing distal left ureteral calculi.Cholelithiasis without cholecystitisMultiple stable hypoattenuating hepatic lesions, many of which demonstrate coarse calcifications and the majority of which appear to likely represent patent cyst, although a few of the lesions are not determinate by Hounsfield unit values. This could be further corroborated with MRI.Left renal cyst.Radiation dose reduction was achieved through individualized adjustment of kVP and/or mA, through adaptive statistical iterative reconstruction, and/or through automated tube current modulation.Electronically signed by: TARIQ KYLE (Mar 15, 2021 12:12:10)
[2021-03-15] MEDS: SNACK - Diabetic Appropriate PO SCH (20:37)
[2021-03-15] MEDS: LIPITOR TAB 40 MG PO SCH (20:37)
[2021-03-15] MEDS: ZESTRIL TAB 10 MG PO SCH (20:39)
[2021-03-16] MEDS: ZOSYN VIAL 3.375 GRAMS 3.375 G in NS 100 ML IV + SPIKE MINIBAG* 100 ML IV SCH (05:30)
[2021-03-16] MEDS: TORADOL 30 MG VIAL IVP SCH (05:31)
[2021-03-16] MEDS: ZOFRAN INJ 4 MG VIAL IVP PRN (05:31)
[2021-03-16] MEDS: HumuLIN R SUBCUT PRN (06:04)
[2021-03-16 06:41] LABS: BASOPHILS # (AUTO) 0.1 X10^3/uL (0.0-0.1); BASOPHILS % (AUTO) 0.9 % (0.2-1.0); EOSINOPHILS # (AUTO) 0.3 x10^3/uL (0.0-0.2); EOSINOPHILS % (AUTO) 5.2 % (0.9-2.9); HEMATOCRIT 35.4 % (36.0-47.0); HEMOGLOBIN 11.7 g/dL (12.0-16.0); LYMPHOCYTES # (AUTO) 1.5 X10^3/uL (1.3-2.9); LYMPHOCYTES % (AUTO) 26.9 % (21.0-51.0); MEAN CORPUSCULAR HEMOGLOBIN 29.1 pg (27.0-34.0); MEAN CORPUSCULAR HGB CONC 32.9 g/dL (33.0-35.0); MEAN CORPUSCULAR VOLUME 88.3 fL (80.0-100.0); MEAN PLATELET VOLUME 7.7 fL (7.4-11.0); MONOCYTES # (AUTO) 0.5 x10^3/uL (0.3-0.8); MONOCYTES % (AUTO) 9.5 % (0.0-13.0); NEUTROPHILS # (AUTO) 3.2 x10^3/uL (2.2-4.8); NEUTROPHILS % (AUTO) 57.5 % (42.0-75.0); PLATELET COUNT 208 X10^3/uL (150.0-450.0); RED BLOOD COUNT 4.01 X10^6/uL (3.5-5.4); RED CELL DISTRIBUTION WIDTH 15.8 % (11.6-16.5); WHITE BLOOD COUNT 5.5 X10^3/uL (3.6-10.0)
[2021-03-16 06:55] LABS: ALBUMIN 2.7 g/dL (3.4-5.0); CALCIUM 8.4 mg/dL (8.5-10.1); CARBON DIOXIDE 29.9 mmol/L (21-32); COR CA(FOR HYPOALB) 9.4 mg/dL (8.5-10.1); CREATININE 1.51 mg/dL (0.55-1.02); TOTAL PROTEIN 6.6 g/dL (6.4-8.2)
[2021-03-16 08:37] VITALS: BP 127/60
--- NOTE | 2021-03-16 09:34 | PCM.PROG ---
Progress Note - Progress Note for Day of Date of Exam: 03/15/21 - Subjective Subjective: IS BEING TREATED FOR RENAL STONES, HYDROUTERONEPHROSIS, JACQUIE, AND DEHYDRATION. TODAY, SHE IS ALERT AND ORIENTED, SITTING UP IN CHAIR ON MORNING ROUNDS. SHE CONTINUES WITH INTERMITTENT LEFT FLANK PAIN AND SWELLING TO LOWER EXTREMITIES. SHE DOES NOT BELIEVE THAT SHE HAS PASSED ANY OF THE STONE AT THIS TIME. ON EXAMINATION, HEART IS REGULAR IN RATE AND RHYTHM. BILATERAL LUNGS ARE NOTED WITH DIMINISHED LUNG SOUNDS THROUGHOUT. ABDOMEN IS ROUND, SOFT, AND NON-TENDER WITH NORMAL BOWEL SOUNDS NOTED IN ALL QUADRANTS. THERE IS 1+ EDEMA TO BILATERAL LOWER EXTREMITIES AND ERYTHEMA TO THE LEFT LOWER EXTREMITY. HER VITALS THIS MORNING ARE: 98.0-71-18-94%-132/61. LABS WERE OBTAINED. ABNORMAL LAB VALUES INCLUDE THE FOLLOWING: HGB 11.1, HCT 33.9, CHLORIDE 108, CREATININE 1.38, GLUCOSE 266, CALCIUM 8.2, TOTAL PROTEIN 5.9, ALBUMIN 2.4. SHE IS CURRENTLY RECEIVING NORMAL SALINE AT 80 ML/HR, ZOSYN 3.375G IV TID, FLOMAX 0.4MG PO BID, NORVASC 10MG PO DAILY, LIPITOR 40MG PO HS, LOVENOX 40MG SC DAILY, AMARYL 4MG PO BID, LANTUS 40 UNITS SC BID, HUMULIN R SLIDING SCALE, TORADOL 30MG IV Q8H, ZESTR [place] 10MG PO HS, GLUCOPHAGE 500MG PO BID, LOPRESSOR 25MG PO BID, OTBS ACHS, ZOFRAN 4MG IV Q8H PRN, AND DIOVAN 160MG PO DAILY. TODAY, WE WILL REPEAT AN ABDOMEN/PELVIS CT WITHOUT CONTRAST AND ADMINISTER LASIX 40MG IV X 1 DOSE. OTHERWISE, WE WILL FOLLOW UP WITH AM LABS AND CONTINUE TO MONITOR. TIME SPENT ON CLINICAL ASSESSMENT, REVIEWING LABS AND IMAGING, DECISION MAKING, AND DOCUMENTATION GREATER THAN 45 MINUTES. - Past Medical Family Social History Past Med/Fam/Surg Hx: No changes since H&P Allergies: Allergies acyclovir Allergy (Verified 01/27/20 15:32) - Review of Systems ROS: No change since H&P - Vital Signs and I&O's Vital Signs: Temperature 97.9 F Pulse Rate [Bilateral Brachial 78 ] Pulse Rate [Left] 70 Pulse Rate 91 Respiratory Rate 20 Blood Pressure [Left Arm] 127/60 Blood Pressure [Right Arm] 150/67 Blood Pressure 179/74 O2 Sat by Pulse Oximetry 91 Intake and Output: Intake & Output 03/13/21 03/14/21 03/15/21 03/16/21 11:59 11:59 11:59 11:59 Intake Total 2797 / 2797 3173 / 3173 2564 / 2564 2724 / 2724 Balance 2797 / 2797 3173 / 3173 2564 / 2564 2724 / 2724 - Physical Exam Oriented: Normal Eyes: Normal Ear: Normal Nose: Normal Throat: Normal Respiratory: Diminished Cardiovascular: Normal : Normal Auscultation: Bowel Sounds: Normal Palpation: Normal Tenderness: Mild (LEFT FLANK) Skin: Red (LEFT LOWER EXTREMITY ), Hot Musculoskeletal: Left (LEFT SIDE FLANK ) Psychiatric: Normal Mood Description: Calm Affect: Normal Speech Pattern: Clear, Appropriate - Laboratory and Diagnostics Result Diagrams: 03/16/21 05:52 03/16/21 05:52 Labs: Laboratory WBC 5.5 X10^3/uL (3.6-10.0) 03/16/21 05:52 RBC 4.01 X10^6/uL (3.5-5.4) 03/16/21 05:52 Hgb 11.7 g/dL (12.0-16.0) L 03/16/21 05:52 Hct 35.4 % (36.0-47.0) L 03/16/21 05:52 MCV 88.3 fL (80.0-100.0) 03/16/21 05:52 MCH 29.1 pg (27.0-34.0) 03/16/21 05:52 MCHC 32.9 g/dL (33.0-35.0) L 03/16/21 05:52 RDW 15.8 % (11.6-16.5) 03/16/21 05:52 Plt Count 208 X10^3/uL (150.0-450.0) 03/16/21 05:52 MPV 7.7 fL (7.4-11.0) 03/16/21 05:52 Neut % (Auto) 57.5 % (42.0-75.0) 03/16/21 05:52 Lymph % (Auto) 26.9 % (21.0-51.0) 03/16/21 05:52 [place] % (Auto) 9.5 % (0.0-13.0) 03/16/21 05:52 Eos % (Auto) 5.2 % (0.9-2.9) H 03/16/21 05:52 Baso % (Auto) 0.9 % (0.2-1.0) 03/16/21 05:52 Neut # (Auto) 3.2 x10^3/uL (2.2-4.8) 03/16/21 05:52 Lymph # (Auto) 1.5 X10^3/uL (1.3-2.9) 03/16/21 05:52 [place] # (Auto) 0.5 x10^3/uL (0.3-0.8) 03/16/21 05:52 Eos # (Auto) 0.3 x10^3/uL (0.0-0.2) H 03/16/21 05:52 Baso # (Auto) 0.1 X10^3/uL (0.0-0.1) 03/16/21 05:52 Absolute Nucleated RBC 0.1 /100WBC 03/16/21 05:52 Sodium 143 mmol/L (136-145) 03/16/21 05:52 Corrected Sodium 146 mmol/L (136-145) H 03/16/21 05:52 Potassium 4.4 mmol/L (3.5-5.1) 03/16/21 05:52 Chloride 108 mmol/L (98-107) H 03/16/21 05:52 Carbon Dioxide 29.9 mmol/L (21-32) 03/16/21 05:52 BUN 18 mg/dL (7-18) 03/16/21 05:52 Creatinine 1.51 mg/dL (0.55-1.02) H 03/16/21 05:52 Est GFR (MDRD) Af Amer 44 (>60) L 03/16/21 05:52 Est GFR (MDRD) Non-Af 37 (>60) L 03/16/21 05:52 Glucose 245 mg/dL (65-99) H 03/16/21 05:52 POC Glucose (mg/dL) 274 mg/dL (65-99) H 03/16/21 05:51 Calcium 8.4 mg/dL (8.5-10.1) L 03/16/21 05:52 Corrected Calcium 9.4 mg/dL (8.5-10.1) 03/16/21 05:52 Total Bilirubin 0.30 mg/dL (0.2-1.0) 03/16/21 05:52 AST 24 Units/L (15-37) 03/16/21 05:52 ALT 38 Units/L (12-78) 03/16/21 05:52 Alkaline Phosphatase 55 Units/L (46-116) 03/16/21 05:52 Total Protein 6.6 g/dL (6.4-8.2) 03/16/21 05:52 Albumin 2.7 g/dL (3.4-5.0) L 03/16/21 05:52 Globulin 3.9 g/dL (2.5-4.5) 03/16/21 05:52 Albumin/Globulin Ratio 0.7 Ratio (1.1-2.1) L 03/16/21 05:52 Specimen Type Clean catch urine 03/09/21 06:47 Urine Color Yellow (YELLOW) 03/09/21 06:47 Urine Appearance Slightly hazy (CLEAR) 03/09/21 06:47 Urine pH 5.0 (5.0 - 8.0) 03/09/21 06:47 Ur Specific [place] 1.020 (1.000-1.030) 03/09/21 06:47 Urine Protein Negative (NEGATIVE) 03/09/21 06:47 Urine Glucose (UA) 4+ (NEGATIVE) 03/09/21 06:47 Urine Ketones 1+ (NEGATIVE) 03/09/21 06:47 Urine Occult Blood 4+ (NEGATIVE) 03/09/21 06:47 Urine Nitrite Negative (NEGATIVE) 03/09/21 06:47 Urine Bilirubin Negative (NEGATIVE) 03/09/21 06:47 Urine Urobilinogen Normal (NORMAL) 03/09/21 06:47 Ur Leukocyte Esterase Negative (NEGATIVE) 03/09/21 06:47 Urine RBC 10-20 /HPF (0-3) A 03/09/21 06:47 Urine WBC 3-5 /HPF (0-5) 03/09/21 06:47 Ur Squamous Epith Cells Few /HPF (NEGATIVE) 03/09/21 06:47 Triple Phos Crystals Moderate /HPF (NEGATIVE) 03/09/21 06:47 Urine Bacteria Trace /HPF (NEGATIVE) 03/09/21 06:47 Ur Culture Indicated? No/not indicated 03/09/21 06:47 SARS-CoV-2 (PCR) Negative (NEGATIVE) 03/09/21 09:22 Influenza Type A (PCR) Negative (NEGATIVE) 03/09/21 09:22 Influenza Type B (PCR) Negative (NEGATIVE) 03/09/21 09:22 RSV (PCR) Negative (NEGATIVE) 03/09/21 09:22 - Plan (1) Renal stones Status: Acute Plan: NORMAL SALINE AT 80 ML/HR, ZOFRAN 4MG IV Q8H PRN, TORADOL 30MG IV Q8H, LOVENOX 40MG SC DAILY, OTBS ACHS, HUMULIN R SLIDING SCALE, FLOMAX 0.4MG PO BID, ZOSYN 3.375G IV TID, AND HER HOME MEDICATIONS WERE RESUMED. (2) Hydroureteronephrosis Status: Acute (3) JACQUIE (acute kidney injury) Status: Acute (4) Dehydration Status: Acute (5) CAD (coronary artery disease) Status: Chronic Qualifiers: Coronary Disease-Associated Artery/Lesion type: [place] artery [place] vs. 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
[2021-03-16] MEDS: DIOVAN TAB 160 MG PO SCH (09:37)
[2021-03-16] MEDS: AMARYL TAB 4 MG PO SCH (09:37)
[2021-03-16] MEDS: NORVASC TAB 5 MG PO SCH (09:37)
[2021-03-16] MEDS: GLUCOPHAGE XR 24-HR PO SCH (09:38)
[2021-03-16] MEDS: LOPRESSOR TAB 25 MG PO SCH (09:38)
[2021-03-16] MEDS: FLOMAX PO SCH (09:38)
--- NOTE | 2021-03-16 09:41 | PCM.PROG ---
Progress Note - Progress Note for Day of Date of Exam: 03/16/21 - Subjective Subjective: IS BEING TREATED FOR RENAL STONES, HYDROUTERONEPHROSIS, JACQUIE, AND DEHYDRATION. TODAY, SHE IS ALERT AND ORIENTED, SITTING UP IN CHAIR ON MORNING ROUNDS. SHE CONTINUES WITH INTERMITTENT LEFT FLANK PAIN AND REDNESS TO LEFT LOWER EXTREMITY. SHE DOES NOT BELIEVE THAT SHE HAS PASSED ANY OF THE STONE AT THIS TIME. SWELLING TO LOWER EXTREMITIES HAS DECREASED SINCE YESTERDAY. ON EXAMINATION, HEART IS REGULAR IN RATE AND RHYTHM. BILATERAL LUNGS ARE NOTED WITH DIMINISHED LUNG SOUNDS THROUGHOUT. ABDOMEN IS ROUND, SOFT, AND NON-TENDER WITH NORMAL BOWEL SOUNDS NOTED IN ALL QUADRANTS. THERE IS TRACE EDEMA TO BILATERAL LOWER EXTREMITIES AND ERYTHEMA TO THE LEFT LOWER EXTREMITY. HER VITALS THIS MORNING ARE: 97.9-78-20-91%-127/60. LABS WERE OBTAINED. ABNORMAL LAB VALUES INCLUDE THE FOLLOWING: HGB 11.7, HCT 35.4, CHLORIDE 108, CREATININE 1.51, GLCUOSE 245, CALCIUM 8.4, ALBUMIN 2.7. AN ABDOMEN/PELVIS CT WITHOUT CONTRAST WAS REPEATED YESTERDAY AND REVEALED: Unchanged moderate left-sided hydr oureteronephrosis secondary to 2, obstructing distal left ureteral calculi. Cholelithiasis without cholecystitis. Multiple stable hypoattenuating hepatic lesions, many of which demonstrate coarse calcifications and the majority of which appear to likely represent patent cyst, although a few of the lesions are not determinate by Hounsfield unit values. This could be further corroborated with MRI. Left renal cyst. SHE IS CURRENTLY RECEIVING NORMAL SALINE AT 80 ML/HR, ZOSYN 3.375G IV TID, FLOMAX 0.4MG PO BID, NORVASC 10MG PO DAILY, LIPITOR 40MG PO HS, LOVENOX 40MG SC DAILY, AMARYL 4MG PO BID, LANTUS 40 UNITS SC BID, HUMULIN R SLIDING SCALE, TORADOL 30MG IV Q8H, ZESTRIL 10MG PO HS, GLUCOPHAGE 500MG PO BID, LOPRESSOR 25MG PO BID, OTBS ACHS, ZOFRAN 4MG IV Q8H PRN, AND DIOVAN 160MG PO DAILY. TODAY, WE WILL CONSULT WITH UROLOGIST. OTHERWISE, WE WILL FOLLOW UP WITH AM LABS AND CONTINUE TO MONITOR. TIME SPENT ON CLINICAL ASSESSMENT, REVIEWING LABS AND IMAGING, DECISION MAKING, AND DOCUMENTATION GREATER THAN 45 MINUTES. - Past Medical Family Social History Past Med/Fam/Surg Hx: No changes since H&P Allergies: Allergies acyclovir Allergy (Verified 01/27/20 15:32) - Review of Systems ROS: No change since H&P - Vital Signs and I&O's Vital Signs: Temperature 97.9 F Pulse Rate [Bilateral Brachial 78 ] Pulse Rate [Left] 70 Pulse Rate 91 Respiratory Rate 20 Blood Pressure [Left Arm] 127/60 Blood Pressure [Right Arm] 150/67 Blood Pressure 179/74 O2 Sat by Pulse Oximetry 91 Intake and Output: Intake & Output 03/13/21 03/14/21 03/15/21 03/16/21 11:59 11:59 11:59 11:59 Intake Total 0737 / 2797 3173 / 3173 2564 / 2564 2724 / 2724 Balance 2797 / 2797 3173 / 3173 2564 / 2564 2724 / 2724 - Physical Exam Oriented: Normal Eyes: Normal Ear: Normal Nose: Normal Throat: Normal Respiratory: Diminished Cardiovascular: Normal : Normal Auscultation: Bowel Sounds: Normal Tenderness: Mild (LEFT FLANK) Skin: Red (LEFT LOWER EXTREMITY ), Hot Musculoskeletal: Left (LEFT SIDE FLANK ) Psychiatric: Normal Mood Description: Calm Affect: Normal Speech Pattern: Clear, Appropriate - Laboratory and Diagnostics Result Diagrams: 03/16/21 05:52 03/16/21 05:52 Labs: Laboratory WBC 5.5 X10^3/uL (3.6-10.0) 03/16/21 05:52 RBC 4.01 X10^6/uL (3.5-5.4) 03/16/21 05:52 Hgb 11.7 g/dL (12.0-16.0) L 03/16/21 05:52 Hct 35.4 % (36.0-47.0) L 03/16/21 05:52 MCV 88.3 fL (80.0-100.0) 03/16/21 05:52 MCH 29.1 pg (27.0-34.0) 03/16/21 05:52 MCHC 32.9 g/dL (33.0-35.0) L 03/16/21 05:52 RDW 15.8 % (11.6-16.5) 03/16/21 05:52 Plt Count 208 X10^3/uL (150.0-450.0) 03/16/21 05:52 MPV 7.7 fL (7.4-11.0) 03/16/21 05:52 Neut % (Auto) 57.5 % (42.0-75.0) 03/16/21 05:52 Lymph % (Auto) 26.9 % (21.0-51.0) 03/16/21 05:52 [place] % (Auto) 9.5 % (0.0-13.0) 03/16/21 05:52 Eos % (Auto) 5.2 % (0.9-2.9) H 03/16/21 05:52 Baso % (Auto) 0.9 % (0.2-1.0) 03/16/21 05:52 Neut # (Auto) 3.2 x10^3/uL (2.2-4.8) 03/16/21 05:52 Lymph # (Auto) 1.5 X10^3/uL (1.3-2.9) 03/16/21 05:52 [place] # (Auto) 0.5 x10^3/uL (0.3-0.8) 03/16/21 05:52 Eos # (Auto) 0.3 x10^3/uL (0.0-0.2) H 03/16/21 05:52 Baso # (Auto) 0.1 X10^3/uL (0.0-0.1) 03/16/21 05:52 Absolute Nucleated RBC 0.1 /100WBC 03/16/21 05:52 Sodium 143 mmol/L (136-145) 03/16/21 05:52 Corrected Sodium 146 mmol/L (136-145) H 03/16/21 05:52 Potassium 4.4 mmol/L (3.5-5.1) 03/16/21 05:52 Chloride 108 mmol/L (98-107) H 03/16/21 05:52 Carbon Dioxide 29.9 mmol/L (21-32) 03/16/21 05:52 BUN 18 mg/dL (7-18) 03/16/21 05:52 Creatinine 1.51 mg/dL (0.55-1.02) H 03/16/21 05:52 Est GFR (MDRD) Af Amer 44 (>60) L 03/16/21 05:52 Est GFR (MDRD) Non-Af 37 (>60) L 03/16/21 05:52 Glucose 245 mg/dL (65-99) H 03/16/21 05:52 POC Glucose (mg/dL) 274 mg/dL (65-99) H 03/16/21 05:51 Calcium 8.4 mg/dL (8.5-10.1) L 03/16/21 05:52 Corrected Calcium 9.4 mg/dL (8.5-10.1) 03/16/21 05:52 Total Bilirubin 0.30 mg/dL (0.2-1.0) 03/16/21 05:52 AST 24 Units/L (15-37) 03/16/21 05:52 ALT 38 Units/L (12-78) 03/16/21 05:52 Alkaline Phosphatase 55 Units/L (46-116) 03/16/21 05:52 Total Protein 6.6 g/dL (6.4-8.2) 03/16/21 05:52 Albumin 2.7 g/dL (3.4-5.0) L 03/16/21 05:52 Globulin 3.9 g/dL (2.5-4.5) 03/16/21 05:52 Albumin/Globulin Ratio 0.7 Ratio (1.1-2.1) L 03/16/21 05:52 Specimen Type Clean catch urine 03/09/21 06:47 Urine Color Yellow (YELLOW) 03/09/21 06:47 Urine Appearance Slightly hazy (CLEAR) 03/09/21 06:47 Urine pH 5.0 (5.0 - 8.0) 03/09/21 06:47 Ur Specific [place] 1.020 (1.000-1.030) 03/09/21 06:47 Urine Protein Negative (NEGATIVE) 03/09/21 06:47 Urine Glucose (UA) 4+ (NEGATIVE) 03/09/21 06:47 Urine Ketones 1+ (NEGATIVE) 03/09/21 06:47 Urine Occult Blood 4+ (NEGATIVE) 03/09/21 06:47 Urine Nitrite Negative (NEGATIVE) 03/09/21 06:47 Urine Bilirubin Negative (NEGATIVE) 03/09/21 06:47 Urine Urobilinogen Normal (NORMAL) 03/09/21 06:47 Ur Leukocyte Esterase Negative (NEGATIVE) 03/09/21 06:47 Urine RBC 10-20 /HPF (0-3) A 03/09/21 06:47 Urine WBC 3-5 /HPF (0-5) 03/09/21 06:47 Ur Squamous Epith Cells Few /HPF (NEGATIVE) 03/09/21 06:47 Triple Phos Crystals Moderate /HPF (NEGATIVE) 03/09/21 06:47 Urine Bacteria Trace /HPF (NEGATIVE) 03/09/21 06:47 Ur Culture Indicated? No/not indicated 03/09/21 06:47 SARS-CoV-2 (PCR) Negative (NEGATIVE) 03/09/21 09:22 Influenza Type A (PCR) Negative (NEGATIVE) 03/09/21 09:22 Influenza Type B (PCR) Negative (NEGATIVE) 03/09/21 09:22 RSV (PCR) Negative (NEGATIVE) 03/09/21 09:22 - Plan (1) Renal stones Status: Acute Plan: NORMAL SALINE AT 80 ML/HR, ZOFRAN 4MG IV Q8H PRN, TORADOL 30MG IV Q8H, LOVENOX 40MG SC DAILY, OTBS ACHS, HUMULIN R SLIDING SCALE, FLOMAX 0.4MG PO BID, ZOSYN 3.375G IV TID, AND HER HOME MEDICATIONS WERE RESUMED. (2) Hydroureteronephrosis Status: Acute (3) JACQUIE (acute kidney injury) Status: Acute (4) Dehydration Status: Acute (5) CAD (coronary artery disease) Status: Chronic Qualifiers: Coronary Disease-Associated Artery/Lesion type: [place] artery [place] vs. 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
[2021-03-16] MEDS: LOVENOX INJ 40 MG SYR SC SCH (09:46)
[2021-03-16] MEDS: LANTUS SC SCH (09:46)
[2021-03-16] MEDS: NS 1000 ML 1,000 ML IV SCH (11:32)
== END 2021-03-16 11:15 | disposition home or self-care (01) | DRG 694 ==
LOC: ER 06:03 → MED/SURG 06:03
PROVIDERS: ADMIT Internal Medicine; ATTEND Internal Medicine
DX: N17.9 Acute kidney failure, unspecified; N13.2 Hydronephrosis with renal and ureteral calculous obstruction; R10.9 Unspecified abdominal pain; I10 Essential (primary) hypertension; R60.9 Edema, unspecified; E86.0 Dehydration; K21.9 Gastro-esophageal reflux disease without esophagitis; E78.5 Hyperlipidemia, unspecified; R26.2 Difficulty in walking, not elsewhere classified; E11.9 Type 2 diabetes mellitus without complications; Z20.822 Contact with and (suspected) exposure to COVID-19; I25.10 Atherosclerotic heart disease of native coronary artery without angina pectoris; K44.0 Diaphragmatic hernia with obstruction, without gangrene